=== PATIENT | female | born 1995 | race Caucasian/White ===

== ENCOUNTER 2018-07-22 21:17 | Emergency (ER) | payer BC, OTHER ==
[2018-07-22 21:40] VITALS: TEMP 98.1
--- NOTE | 2018-07-22 22:58 | ED ---
General Adult HPI - General Chief complaint: Abdominal Pain Stated complaint: Abd and back pain. Time Seen by Provider: 07/22/18 22:00 Source: patient, RN notes reviewed Mode of arrival: ambulatory Limitations: no limitations - History of Present Illness Initial comments: 23-year-old female without any past medical history presents to the emergency department for a chief complaint of epigastric pain. Patient states this has been ongoing for the past day. Patient states it is a burning pain in her upper abdomen that radiates around her bilateral ribs. She denies any back pain. Patient denies this pain worsening with eating. She states it is better at night and worse during the day. She denies any lower abdominal pain. Patient denies nausea or vomiting. She states she is eating and drinking normally.Patient has no other complaints at this time including shortness of breath, chest pain, nausea or vomiting, headache, or visual changes. - Related Data Home Medications Medication Instructions Recorded Confirmed Ibuprofen [Motrin] 800 mg PO TID PRN 07/22/18 07/22/18 Previous Rx's Medication Instructions Recorded Famotidine [Pepcid] 20 mg PO BID #20 tablet 07/23/18 Allergies Allergy/AdvReac Type Severity Reaction Status Date / Time No Known Allergies Allergy Verified 07/22/18 21:49 Review of Systems ROS Statement: Those systems with pertinent positive or pertinent negative responses have been documented in the HPI. ROS Other: All systems not noted in ROS Statement are negative. Past Medical History Past Medical History: No Reported History History of Any Multi-Drug Resistant Organisms: None Reported Past Surgical History: No Surgical Hx Reported Past Anesthesia/Blood Transfusion Reactions: No Reported Reaction Past Psychological History: No Psychological Hx Reported Smoking Status: Current every day smoker Past Alcohol Use History: None Reported Past Drug Use History: None Reported General Exam Limitations: no limitations General appearance: alert, in no apparent distress Head exam: Present: atraumatic, normocephalic, normal inspection Eye exam: Present: normal appearance, PERRL, EOMI. Absent: scleral icterus, conjunctival injection, periorbital swelling ENT exam: Present: normal exam, normal oropharynx, mucous membranes moist, TM's normal bilaterally, normal external ear exam Neck exam: Present: normal inspection, full ROM. Absent: tenderness, meningismus, lymphadenopathy Respiratory exam: Present: normal lung sounds bilaterally. Absent: respiratory distress, wheezes, rales, rhonchi, stridor Cardiovascular Exam: Present: regular rate, normal rhythm, normal heart sounds. Absent: systolic murmur, diastolic murmur, rubs, gallop, clicks GI/Abdominal exam: Present: soft, tenderness (Tenderness noted to the epigastric area as well as right and left upper quadrants. Positive Sinclair sign. No tenderness noted to the right and left lower quadrants.), normal bowel sounds. Absent: distended, guarding, rebound, rigid Back exam: Absent: CVA tenderness (R), CVA tenderness (L) Neurological exam: Present: alert, oriented X3, CN II-XII intact Psychiatric exam: Present: normal affect, normal mood Course Vital Signs 07/22/18 07/23/18 21:37 01:10 Temperature 98.1 F Pulse Rate 85 68 Respiratory 20 19 Rate Blood Pressure 137/71 117/82 O2 Sat by Pulse 100 98 Oximetry Medical Decision Making - Medical Decision Making Vitals within normal limits. Exam shows mild epigastric tenderness without guarding. There is also right and left upper quadrant tenderness. No lower abdominal tenderness. CBC and CMP are unremarkable. Urine was cultured as this does show some white blood cells however there are epithelial cells as well. Amylase and lipase are within normal limits. No gallstones or dilated ducts on ultrasound of the right upper quadrant. X-ray of the abdomen shows a nonacute abdomen. Patient was given Toradol and Pepcid. She is having somewhat better at this time. Discussed following up with primary care and GI. Discussed returning if patient has any worsening symptoms. - Lab Data Result diagrams: 07/22/18 21:51 07/22/18 21:51 Lab Results 07/22/18 07/22/18 07/22/18 Range/Units 21:51 21:51 21:51 WBC 9.1 (3.8-10.6) k/uL RBC 4.81 (3.80-5.40) m/uL Hgb 13.4 (11.4-16.0) gm/dL Hct 42.4 (34.0-46.0) % MCV 88.1 (80.0-100.0) fL MCH 27.8 (25.0-35.0) pg MCHC 31.6 (31.0-37.0) g/dL RDW 14.1 (11.5-15.5) % Plt Count 150 (150-450) k/uL Neutrophils % 62 % Lymphocytes % 28 % Monocytes % 5 % Eosinophils % 3 % Basophils % 1 % Neutrophils # 5.6 (1.3-7.7) k/uL Lymphocytes # 2.5 (1.0-4.8) k/uL Monocytes # 0.5 (0-1.0) k/uL Eosinophils # 0.3 (0-0.7) k/uL Basophils # 0.0 (0-0.2) k/uL Sodium 140 (137-145) mmol/L Potassium 3.9 (3.5-5.1) mmol/L Chloride 108 H (98-107) mmol/L Carbon Dioxide 24 (22-30) mmol/L Anion Gap 8 mmol/L BUN 12 (7-17) mg/dL Creatinine 0.86 (0.52-1.04) mg/dL Est GFR (CKD-EPI)AfAm >90 (>60 ml/min/1.73 sqM) Est GFR (CKD-EPI)NonAf >90 (>60 ml/min/1.73 sqM) Glucose 86 (74-99) mg/dL Calcium 9.2 (8.4-10.2) mg/dL Total Bilirubin 0.4 (0.2-1.3) mg/dL AST 24 (14-36) U/L ALT 27 (9-52) U/L Alkaline Phosphatase 88 (38-126) U/L Total Protein 6.7 (6.3-8.2) g/dL Albumin 4.1 (3.5-5.0) g/dL Amylase 48 (30-110) U/L Lipase 74 (23-300) U/L Urine Color Yellow Urine Appearance Cloudy H (Clear) Urine pH 5.5 (5.0-8.0) Ur Specific [place] 1.027 (1.001-1.035) Urine Protein Trace H (Negative) Urine Glucose (UA) Negative (Negative) Urine Ketones 1+ H (Negative) Urine Blood Negative (Negative) Urine Nitrite Negative (Negative) Urine Bilirubin Negative (Negative) Urine Urobilinogen <2.0 (<2.0) mg/dL Ur Leukocyte Esterase Negative (Negative) Urine RBC 4 (0-5) /hpf Urine WBC 7 H (0-5) /hpf Ur Squamous Epith Cells 6 H (0-4) /hpf Urine Bacteria Rare H (None) /hpf Urine Mucus Moderate H (None) /hpf Urine HCG, Qual (Not Detectd) 07/22/18 Range/Units 21:51 WBC (3.8-10.6) k/uL RBC (3.80-5.40) m/uL Hgb (11.4-16.0) gm/dL Hct (34.0-46.0) % MCV (80.0-100.0) fL MCH (25.0-35.0) pg MCHC (31.0-37.0) g/dL RDW (11.5-15.5) % Plt Count (150-450) k/uL Neutrophils % % Lymphocytes % % Monocytes % % Eosinophils % % Basophils % % Neutrophils # (1.3-7.7) k/uL Lymphocytes # (1.0-4.8) k/uL Monocytes # (0-1.0) k/uL Eosinophils # (0-0.7) k/uL Basophils # (0-0.2) k/uL Sodium (137-145) mmol/L Potassium (3.5-5.1) mmol/L Chloride (98-107) mmol/L Carbon Dioxide (22-30) mmol/L Anion Gap mmol/L BUN (7-17) mg/dL Creatinine (0.52-1.04) mg/dL Est GFR (CKD-EPI)AfAm (>60 ml/min/1.73 sqM) Est GFR (CKD-EPI)NonAf (>60 ml/min/1.73 sqM) Glucose (74-99) mg/dL Calcium (8.4-10.2) mg/dL Total Bilirubin (0.2-1.3) mg/dL AST (14-36) U/L ALT (9-52) U/L Alkaline Phosphatase (38-126) U/L Total Protein (6.3-8.2) g/dL Albumin (3.5-5.0) g/dL Amylase (30-110) U/L Lipase (23-300) U/L Urine Color Urine Appearance (Clear) Urine pH (5.0-8.0) Ur Specific [place] (1.001-1.035) Urine Protein (Negative) Urine Glucose (UA) (Negative) Urine Ketones (Negative) Urine Blood (Negative) Urine Nitrite (Negative) Urine Bilirubin (Negative) Urine Urobilinogen (<2.0) mg/dL Ur Leukocyte Esterase (Negative) Urine RBC (0-5) /hpf Urine WBC (0-5) /hpf Ur Squamous Epith Cells (0-4) /hpf Urine Bacteria (None) /hpf Urine Mucus (None) /hpf Urine HCG, Qual Not Detected (Not Detectd) Disposition Clinical Impression: Abdominal pain Disposition: HOME SELF-CARE Condition: Good Instructions: Abdominal Pain (ED) Additional Instructions: Please take Pepcid as directed. Please follow-up with GI in 1-2 days. Return to the emergency department if you have any worsening symptoms. Prescriptions: Famotidine [Pepcid] 20 mg PO BID #20 tablet Is patient prescribed a controlled substance at d/c from ED?: No Referrals: Evelin Roberts MD [STAFF PHYSICIAN] - 1-2 days Time of Disposition: 00:40
[2018-07-22 23:17] LABS: Basophils % (A) 1 %; Eosinophils # (A) 0.3 k/uL (0-0.7); Eosinophils % (A) 3 %; HCT 42.4 % (34.0-46.0); HGB 13.4 gm/dL (11.4-16.0); Lymphocytes # (A) 2.5 k/uL (1.0-4.8); Lymphocytes % (A) 28 %; MCH 27.8 pg (25.0-35.0); MCHC 31.6 g/dL (31.0-37.0); MCV 88.1 fL (80.0-100.0); Mean Platelet Volume 7.5; Monocytes # (A) 0.5 k/uL (0-1.0); Monocytes % (A) 5 %; Neutrophils # (A) 5.6 k/uL (1.3-7.7); Neutrophils % (A) 62 %; Platelet Count 150 k/uL (150-450); RBC 4.81 m/uL (3.80-5.40); RDW 14.1 % (11.5-15.5); WBC 9.1 k/uL (3.8-10.6)
[2018-07-22 23:26] LABS: Appearance,Urine Cloudy (Clear); Bacteria,Urine Rare /hpf; Bilirubin,Urine Negative (Negative); Blood,Urine Negative (Negative); Color,Urine Yellow; Glucose,Urine (UA) Negative (Negative); Ketones,Urine 1+ (Negative); Leukocyte Esterase,Urine Negative (Negative); Mucus,Urine Moderate /hpf; Nitrite,Urine Negative (Negative); PH, Urine 5.5 (5.0-8.0); Protein,Urine Trace (Negative); RBC,Urine 4 /hpf (0-5); Specific Gravity,Urine 1.027 (1.001-1.035); Squamous Epithelial Cell,Urine 6 /hpf (0-4); Urobilinogen,Urine <2.0 mg/dL (<2.0); WBC,Urine 7 /hpf (0-5)
[2018-07-22 23:28] LABS: ALT 27 U/L (9-52); AST 24 U/L (14-36); Albumin 4.1 g/dL (3.5-5.0); Alkaline Phosphatase 88 U/L (38-126); Amylase 48 U/L (30-110); Anion Gap 8 mmol/L; Blood Urea Nitrogen 12 mg/dL (7-17); Calcium 9.2 mg/dL (8.4-10.2); Carbon Dioxide 24 mmol/L (22-30); Chloride 108 mmol/L (98-107); Glucose 86 mg/dL (74-99); Lipase 74 U/L (23-300); Potassium 3.9 mmol/L (3.5-5.1); Sodium 140 mmol/L (137-145); Total Bilirubin 0.4 mg/dL (0.2-1.3); Total Protein 6.7 g/dL (6.3-8.2)
--- NOTE | 2018-07-22 23:46 | US ---
EXAMINATION TYPE: US abdomen limited DATE OF EXAM: 07/22/2018 COMPARISON: NONE CLINICAL HISTORY: Pain. RUQ pain x 3-4 days EXAM MEASUREMENTS: Liver Length: 15.8 cm Gallbladder Wall: 0.2 cm CBD: 0.2 cm Right Kidney: 9.5 x 3.4 x 5.1 cm Pancreas: wnl, body and tail obscured by overlying bowel gas Liver: wnl Gallbladder: wnl Evidence for sonographic Sinclair's sign: No CBD: wnl Right Kidney: wnl, lower pole gassed out IMPRESSION: No gallstones or dilated ducts. Negative exam.
[2018-07-22] MEDS ORDERED: KETOROLAC 30 MG/ML 1 ML VIAL IVP STA (23:55)
[2018-07-22] MEDS ORDERED: ONDANSETRON 4 MG/2 ML VIAL IVP STA (23:55)
--- NOTE | 2018-07-23 00:18 | XR ---
EXAMINATION TYPE: XR abdomen 2V DATE OF EXAM: 07/23/2018 COMPARISON: NONE HISTORY: Abdominal pain TECHNIQUE: 3 views FINDINGS: There is no sign of intestinal obstruction or pneumoperitoneum. Fecal pattern is normal. Th ere is no evidence of a mass. Lung bases are clear. There are no pathologic calcifications over the k idneys. IMPRESSION: Nonacute abdomen.
[2018-07-23] MEDS ORDERED: FAMOTIDINE 20 MG/2 ML VIAL IV STA (00:38)
[2018-07-23 01:12] VITALS: BP 117/82; PULSE 68; RESP 19
== END 2018-07-23 01:10 | disposition home or self-care (01) ==
LOC: EC 21:17
DX: R10.13 Epigastric pain (principal); R10.11 Right upper quadrant pain; R10.12 Left upper quadrant pain; F17.200 Nicotine dependence, unspecified, uncomplicated; Z32.02 Encounter for pregnancy test, result negative
CPT/HCPCS: 99284 ×2; 96374 ×2; 96375 ×3; 36415; 80053; 82150; 83690; 85025; 81001; 81025; 87086; 74019; 76705; J2405; J1885

== ENCOUNTER 2020-10-01 15:57 | Emergency (ER) | payer OTHER ==
[2020-10-01 16:05] VITALS: BP 107/70; PULSE 107; RESP 16; TEMP 97.7
[2020-10-01] MEDS ORDERED: cefTRIAXone 1,000 MG VIAL (IM USE) IM STA (16:15)
--- NOTE | 2020-10-01 16:18 | ED ---
ENT HPI - General Chief complaint: Dental/Oral Stated complaint: dental pain Time Seen by Provider: 10/01/20 16:10 Source: patient, RN notes reviewed Mode of arrival: ambulatory Limitations: no limitations - History of Present Illness Initial comments: 25-year-old female presented to [facility] from chief complaint of abdominal pain, dental swelling. Patient was started on antibiotics on Wednesday. Patient stated Pen-Vee K currently. Patient states started improving. Patient had no change in the swelling or pain. Patient denies any fevers or chills no difficult swallowing. Patient denies any head or neck pain. - Related Data Home Medications Medication Instructions Recorded Confirmed Ibuprofen [Motrin] 800 mg PO TID PRN 07/22/18 07/22/18 Previous Rx's Medication Instructions Recorded Famotidine [Pepcid] 20 mg PO BID #20 tablet 07/23/18 Amoxicillin/Potassium Clav 1 tab PO Q12HR #20 tab 10/01/20 [Augmentin 875-125 Tablet] Allergies Allergy/AdvReac Type Severity Reaction Status Date / Time No Known Allergies Allergy Verified 10/01/20 16:05 Review of Systems ROS Statement: Those systems with pertinent positive or pertinent negative responses have been documented in the HPI. ROS Other: All systems not noted in ROS Statement are negative. Past Medical History Past Medical History: No Reported History History of Any Multi-Drug Resistant Organisms: None Reported Past Surgical History: No Surgical Hx Reported Past Anesthesia/Blood Transfusion Reactions: No Reported Reaction Past Psychological History: No Psychological Hx Reported Smoking Status: Current every day smoker Past Alcohol Use History: None Reported Past Drug Use History: None Reported General Exam Limitations: no limitations General appearance: alert, in no apparent distress Head exam: Present: atraumatic, normocephalic, normal inspection Eye exam: Present: normal appearance, PERRL, EOMI. Absent: scleral icterus, conjunctival injection, periorbital swelling ENT exam: Present: mucous membranes moist, TM's normal bilaterally, normal e xternal ear exam. Absent: normal oropharynx (multiple dental fillings, dental caries noted no drainable abscess.) Neck exam: Present: normal inspection, full ROM. Absent: tenderness, meningismus, lymphadenopathy Respiratory exam: Present: normal lung sounds bilaterally. Absent: respiratory distress, wheezes, rales, rhonchi, stridor Cardiovascular Exam: Present: regular rate, normal rhythm, normal heart sounds. Absent: systolic murmur, diastolic murmur, rubs, gallop, clicks Course Vital Signs 10/01/20 16:01 Temperature 97.7 F Pulse Rate 107 H Respiratory 16 Rate Blood Pressure 107/70 O2 Sat by Pulse 98 Oximetry Medical Decision Making - Medical Decision Making patient we given a shot of Rocephin currently, patient was started on Augmentin. Patient continue Tylenol as she is 31 weeks . Patient follow-up with dentist and DIRECTOR OF GUIDANCE return parameters were discussed. Disposition Clinical Impression: Toothache, Dental infection Disposition: HOME SELF-CARE Condition: Stable Instructions (If sedation given, give patient instructions): Toothache (ED) Additional Instructions: Please return to the Emergency Department if symptoms worsen or any other concerns. Prescriptions: Amoxicillin/Potassium Clav [Augmentin 875-125 Tablet] 1 tab PO Q12HR #20 tab Is patient prescribed a controlled substance at d/c from ED?: No Referrals: Ana Devi DO [Primary Care Provider] - 1-2 days Time of Disposition: 16:17
== END 2020-10-01 16:51 | disposition home or self-care (01) ==
LOC: EC 15:57
DX: K04.7 Periapical abscess without sinus (principal); F17.200 Nicotine dependence, unspecified, uncomplicated
CPT/HCPCS: 99282; 96372; J0696

== ENCOUNTER 2020-11-26 06:00 | Inpatient (IN) | payer BC, OTHER ==
[2020-11-25 15:17] VITALS: BMI 34.3
--- NOTE | 2020-11-25 16:43 | P.HPOB ---
History of Present Illness H&P Date: 11/25/20 Chief Complaint: Breech, trial version/possible C/S This patient is a pleasant 25 yr female EDC 12/03/2020 estimated gestational age 39 0/7 weeks with known breech presentation who presents for trial of external cephalic version. If unsuccessful then C/S, otherwise induction. has been uncomplicated with the exception of COVID (November 01) and mild thrombocytopenia. Most recent platelets were 129 (11/14). Review of Systems Genitourinary: Reports Menstruation: Reports amenorrhea Past Medical History Past Medical History: GERD/Reflux Additional Past Medical History / Comment(s): 2 previous term vaginal deliveries. Mild gestational thrombocytopenia. History of Any Multi-Drug Resistant Organisms: None Reported Past Surgical History: No Surgical Hx Reported Past Anesthesia/Blood Transfusion Reactions: No Reported Reaction Additional Past Anesthesia/Blood Transfusion Reaction / Comment(s): NO ANESTHESIA HX. Past Psychological History: Anxiety, Depression Smoking Status: Current every day smoker Past Alcohol Use History: None Reported Additional Past Alcohol Use History / Comment(s): SMOKES 4 CIGARETTES/DAY., STARTED SMOKING AGE 17 Past Drug Use History: None Reported - Past Family History Mother Family Medical History: No Reported History Medications and Allergies Home Medications Medication Instructions Recorded Confirmed Type Calcium Carbonate [Tums] 500 mg PO DIRECTED PRN 11/25/20 11/25/20 History Ferrous Sulfate [Feosol] 325 mg PO DAILY 11/25/20 11/25/20 History Pnv No.95/Ferrous Fum/Folic AC 1 each PO DAILY 11/25/20 11/25/20 History [ Multivitamin Tablet] Allergies Allergy/AdvReac Type Severity Reaction Status Date / Time No Known Allergies Allergy Verified 11/25/20 14:57 Exam Intake and Output 11/25/20 11/25/20 11/25/20 06:59 14:59 22:59 Other: Weight 96.615 kg 96.615 kg - OBG Physical Exam Abdomen: bowel sounds normal, no diffuse tenderness, no bruit present, no guarding noted, no hepatomegaly, no splenomegaly, no mass Vulva: both: normal Vagina: normal moisture, no discharge Cervix: no lesion (Closed in the office), no discharge Uterus: enlarged (Fundal height 37 cm) Results labs: O positive, Rubella Immune, RPR-HepB neg, QUAD screen normal, Glucola 111 GBS negative, Most recent ultrasound Breech 5#8oz Assessment and Plan Assessment: This is a pleasant 25 yr female 39 0/7 weeks with known breech presentation who presents for trial of external cephalic version, C/s if unsuccessful. I had a long discussion with Shahrzad about the version process, risks/benefits. We also discussed the C/S process. If version is successful, would proceed with induction of labor. (1) 39 weeks gestation of Status: Acute Code(s): Z3A.39 - 39 WEEKS GESTATION OF SNOMED Code(s): 92923512 (2) Breech presentation Status: Acute Code(s): O32.1XX0 - MATERNAL CARE FOR BREECH PRESENTATION, UNSP SNOMED Code(s): 2581753 (3) Gestational thrombocytopenia Status: Acute Code(s): O99.119 - OTH DIS OF BLD/BLD-FORM ORG/IMMUN MECHNSM COMP PREG,UNSP TRI; D69.6 - THROMBOCYTOPENIA, UNSPECIFIED SNOMED Code(s): 953455171
[2020-11-26] MEDS ORDERED: LACTATED RINGERS 1,000 ML IV SCH (06:12)
[2020-11-26] MEDS ORDERED: METHYLERGONOVINE 0.2 MG/ML 1 ML AMP IM PRN (06:12)
[2020-11-26] MEDS ORDERED: OXYTOCIN 10 UNIT/ML 1 ML VIAL IM PRN (06:12)
[2020-11-26] MEDS ORDERED: LIDOCAINE 0.5% (PF) 5 MG/ML (50 ML SDV) SQ PRN (06:12)
[2020-11-26] MEDS ORDERED: CARBOPROST TROMETHAMINE 250 MCG/ML 1 ML AMP IM PRN (06:12)
[2020-11-26] MEDS ORDERED: TERBUTALINE 1 MG/ML VIAL SQ PRN (06:12)
[2020-11-26 06:31] LABS: Basophils % (A) 1 %; Eosinophils # (A) 0.2 k/uL (0-0.7); Eosinophils % (A) 2 %; HCT 33.4 % (34.0-46.0); HGB 11.2 gm/dL (11.4-16.0); Hypochromasia Slight; Lymphocytes # (A) 1.7 k/uL (1.0-4.8); Lymphocytes % (A) 18 %; MCH 30.1 pg (25.0-35.0); MCHC 33.5 g/dL (31.0-37.0); Mean Platelet Volume 9.6; Monocytes # (A) 0.5 k/uL (0-1.0); Monocytes % (A) 5 %; Neutrophils # (A) 7.1 k/uL (1.3-7.7); Neutrophils % (A) 74 %; Platelet Count 105 k/uL (150-450); Poikilocytosis Slight; RBC 3.71 m/uL (3.80-5.40); RDW 15.3 % (11.5-15.5); WBC 9.6 k/uL (3.8-10.6)
[2020-11-26] MEDS ORDERED: LACTATED RINGERS 1,000 ML IV ONE (06:31)
[2020-11-26] MEDS ORDERED: CITRIC ACID-SODIUM CITRATE 15 ML CUP PO ONE (06:31)
--- NOTE | 2020-11-26 06:31 | P.PN ---
Progress Note - Text Progress Note Date: 11/26/20 Patient presented for trial of external cephalic version. heart tones are category 1. Bedside ultrasound initially showed oblique lie with a hand presentation. Patient was monitored for approximately 10 or 15 minutes and repeat ultrasound now shows the baby to be breech presentation with the head in the patient's left upper quadrant. Discussion with the patient and her and due to the unstable lie we are going to proceed with section at this time.
[2020-11-26] MEDS ORDERED: OXYTOCIN 10 UNIT/ML 1 ML VIAL ONE (07:55)
[2020-11-26] MEDS ORDERED: MORPHINE SULFATE (PF) 0.3 MG/0.3 ML SYR ONE (07:55)
[2020-11-26] MEDS ORDERED: ONDANSETRON 4 MG/2 ML VIAL ONE (07:55)
--- NOTE | 2020-11-26 08:46 | P.OP ---
Date of Procedure: 11/26/20 Preoperative Diagnosis: #1: 39 weeks intrauterine . #2: Unstable lie. Postoperative Diagnosis: Same Procedure(s) Performed: Primary low transverse section Anesthesia: spinal Surgeon: Abdi Drake Warp Dyeing Tender #1: Kerry Rosales Estimated Blood Loss (ml): 800 Pathology: none sent Condition: stable Disposition: floor Indications for Procedure: Please see dictated H&P for intimate details of this patient's admission. Brief summary this is a pleasant 25-year-old 3 para 2 female 39 weeks gestation initially admitted for expected cephalic version. Patient initially found to be in the oblique presentation approximate 15 minutes later is breech presentation. Is very consistent with unstable lie. Patient is not dilated. I discussed management with her at this time we elected to proceed with section for delivery. She does understand the surgery and risks and risks of infection, bleeding, possible injury bowel, bladder, vessels, and/or other organs. All the patient's questions were answered written consent is obtained. Operative Findings: This is a vigorous viable female infant Apgars 9 and 10 delivery time was 0814 hours. Infant was in the transverse presentation converted to vertex/compound upon delivery. Description of Procedure: This patient has a Metcalf catheter placed to straight drain. She subsequently taken to the operating room where she sat up and spinal anesthetic is administered without incident. With adequate level of anesthesia she has abdominal prep and drape. Scalpels and taken Pfannenstiel skin incision is made. A second scalpel is taken of the fascia and the fascia scored with scalpel. Fascial incision extended bilaterally using the Ferreira scissors. Fascia is then dissected off the rectus muscles sharply. Rectus muscles are and the peritoneum identified and entered sharply. Peritoneal incision extended superior and inferior without difficulty. Bladder blade is then placed. Bladder peritoneum was then taken off lower uterine segment. Scalpels taken low transverse uterine incision is then made. Using a hemostat I into the uterine cavity bluntly. There is loss of a copious amount of clear fluid. At this time the is found to be in the transverse presentation. Initial efforts there is a foot presenting but is then converted to a vertex with a hand and foot/compound presentation. This is easily delivered through the incision. This is a vigorous viable female infant Apgars 9 and 10 delivery time was 0814 hours. After delivery of the the umbilical cords doubly clamped and cut. The placenta is then manually extracted intact. The uterus is then externalized uterine incision demarcated with Lawson clamps. Uterine incision then closed using 0 Vicryl running locked fashion 2 layers. Excellent hemostasis is noted. The bladder peritoneum was then reapproximated using a 3-0 Vicryl. Excess fluid is removed from the abdomen and pelvis. Uterus placed back into the pelvis. Final inspection shows excellent hemostasis. The parietal peritoneum was then identified and closed using 0 Vicryl running fashion. Rectus muscles reapproximated in 0 Vicryl interrupted fashion. Fascial incision is then closed using 0 PDS. Fascial incision is intact and hemostatic. Subcutaneous tissues and closed using a 3-0 Vicryl. Skin is and closed using louise. All counts are correct 3. There are no complications. and mother are stable delivery room.
[2020-11-26] MEDS ORDERED: ZOLPIDEM 5 MG TAB PO PRN (08:51)
[2020-11-26] MEDS ORDERED: METOCLOPRAMIDE 5 MG/ML 2 ML VIAL IVP PRN (08:51)
[2020-11-26] MEDS ORDERED: NALOXONE 0.4 MG/ML 1 ML VIAL IV PRN (08:51)
[2020-11-26] MEDS ORDERED: ONDANSETRON 4 MG/2 ML VIAL IVP PRN (08:51)
[2020-11-26] MEDS ORDERED: diphenhydrAMINE 25 MG CAP PO PRN (08:51)
[2020-11-26] MEDS ORDERED: LANOLIN CREAM 5 GM TUBE TOPICAL PRN (08:51)
[2020-11-26] MEDS ORDERED: OXYTOCIN 30 UNITS/500 ML NS 30 UNIT in SALINE 1 500ML.BAG IV SCH (08:51)
[2020-11-26] MEDS ORDERED: diphenhydrAMINE 50 MG/ML 1 ML VIAL IVP PRN (08:51)
[2020-11-26] MEDS: SENNOSIDES-DOCUSATE SODIUM 1 EACH TAB PO SCH ×2 (09:11→20:40)
[2020-11-26] MEDS: KETOROLAC 15 MG/ML 1 ML VIAL IVP PRN ×2 (17:43→23:52)
[2020-11-26] MEDS: LACTATED RINGERS 1,000 ML IV SCH (20:40)
[2020-11-26] MEDS: ACETAMINOPHEN TAB 500 MG TAB PO PRN (21:59)
[2020-11-27] MEDS: LACTATED RINGERS 1,000 ML IV SCH ×2 (02:02→20:51)
[2020-11-27] MEDS: ACETAMINOPHEN TAB 500 MG TAB PO PRN ×3 (05:31→18:41)
--- NOTE | 2020-11-27 05:59 | P.PN ---
Progress Note - Text Progress Note Date: 11/27/20 Shahrzad is postop day 1 from a with spinal Duramorph. She has been doing pretty well. Her pain is been controlled well overnight. She is using minimal amounts of [id number] medications. She has been able to ambulate, she's been able to urinate. She is passing flatus. She is mild pruritus. There is no lower extremity weakness numbness or tingling. Please contact anesthesia if there is any issues.
--- NOTE | 2020-11-27 06:31 | P.PNOBGPC ---
Subjective - Subjective Patient reports: Reports appetite normal, Reports voiding normally, Reports pain well controlled, Reports ambulating normally : doing well Objective - Vital Signs Latest vital signs: Vital Signs Temp Pulse Resp BP Pulse Ox 11/27/20 03:43 97.7 F 62 16 111/64 99 11/27/20 00:00 97.9 F 72 16 109/60 100 11/26/20 20:00 97.9 F 73 16 116/64 98 11/26/20 16:00 98.4 F 68 16 129/66 97 11/26/20 12:00 97.4 F L 59 L 16 115/71 11/26/20 10:52 97.8 F 57 L 16 111/75 11/26/20 10:22 56 L 16 118/54 11/26/20 09:51 68 16 104/56 98 11/26/20 09:37 59 L 16 95/52 97 11/26/20 09:17 64 16 102/56 97 11/26/20 09:07 68 16 107/61 98 11/26/20 08:52 97.6 F 76 16 93/43 98 Intake and Output 11/26/20 11/26/20 11/27/20 14:59 22:59 06:59 Output Total 1150 2200 1750 Balance -1150 -2200 -1750 Output: Urine 350 2200 1750 Uretheral (Metcalf) 1100 Estimated Blood Loss 800 Other: # Voids 1 - Exam Lungs: bilateral: normal Chest: Normal S1, Normal S2 Extremities: Present: normal Abdomen: Present: normal appearance, soft. Absent: distention, tenderness Incision: Present: normal, dry, intact Uterus: Present: normal, firm - Labs Labs: Abnormal Lab Results - Last 24 Hours (Table) 11/26/20 Range/Units 06:15 RBC 3.71 L (3.80-5.40) m/uL Hgb 11.2 L (11.4-16.0) gm/dL Hct 33.4 L (34.0-46.0) % Plt Count 105 L (150-450) k/uL Assessment and Plan Assessment: Postoperative day #1. Patient had 1 episode of urinary retention but otherwise is urinating without difficulty. Vital signs are stable she's afebrile. Uterus is firm, nontender. Her incision is intact and dry. CBC is pending at time of this dictation. My impression, this is a normal postoperative course. Plan today is to encourage ambulation, allow the patient shower, check a CBC. (1) 39 weeks gestation of Current Visit: No Status: Acute Code(s): Z3A.39 - 39 WEEKS GESTATION OF SNOMED Code(s): 81193229 (2) Breech presentation Current Visit: No Status: Acute Code(s): O32.1XX0 - MATERNAL CARE FOR BREECH PRESENTATION, UNSP SNOMED Code(s): 2319497 (3) Gestational thrombocytopenia Current Visit: No Status: Acute Code(s): O99.119 - OTH DIS OF BLD/BLD-FORM ORG/IMMUN MECHNSM COMP PREG,UNSP TRI; D69.6 - THROMBOCYTOPENIA, UNSPECIFIED SNOMED Code(s): 531962099
[2020-11-27 07:47] LABS: Basophils % (A) 0 %; Eosinophils # (A) 0.1 k/uL (0-0.7); Eosinophils % (A) 1 %; Hypochromasia Moderate; Lymphocytes # (A) 1.3 k/uL (1.0-4.8); Lymphocytes % (A) 16 %; MCH 29.4 pg (25.0-35.0); MCV 91.9 fL (80.0-100.0); Mean Platelet Volume 9.5; Monocytes # (A) 0.4 k/uL (0-1.0); Monocytes % (A) 5 %; Neutrophils # (A) 6.4 k/uL (1.3-7.7); Neutrophils % (A) 77 %; Poikilocytosis Slight; RBC 2.83 m/uL (3.80-5.40); RDW 15.8 % (11.5-15.5); WBC 8.3 k/uL (3.8-10.6)
[2020-11-27 07:52] LABS: HGB 8.3 gm/dL (11.4-16.0)
[2020-11-27] MEDS: IBUPROFEN 600 MG TAB PO PRN ×3 (08:46→22:21)
[2020-11-27] MEDS: SENNOSIDES-DOCUSATE SODIUM 1 EACH TAB PO SCH ×2 (08:57→23:01)
[2020-11-27 10:52] LABS: Platelet Count 96 k/uL (150-450)
[2020-11-27] MEDS: FERROUS SULFATE 325 MG TAB PO SCH ×2 (12:15→18:41)
[2020-11-28] MEDS: ACETAMINOPHEN TAB 500 MG TAB PO PRN ×2 (00:55→08:16)
[2020-11-28] MEDS: IBUPROFEN 600 MG TAB PO PRN ×2 (04:02→10:09)
[2020-11-28 05:57] VITALS: RESP 17
--- NOTE | 2020-11-28 06:04 | P.PNOBGPC ---
Subjective - Subjective Patient reports: Reports appetite normal, Reports voiding normally, Reports pain well controlled, Reports ambulating normally : doing well Objective - Vital Signs Latest vital signs: Vital Signs Temp Pulse Resp BP Pulse Ox 11/27/20 23:01 97.7 F 87 17 111/71 98 11/27/20 15:49 98.2 F 82 16 102/69 11/27/20 12:00 97.6 F 75 16 100/66 11/27/20 08:00 98.4 F 68 18 116/61 98 Intake and Output 11/27/20 11/27/20 11/28/20 14:59 22:59 06:59 Other: # Voids 1 - Exam Lungs: bilateral: normal Chest: Normal S1, Normal S2 Extremities: Present: normal Abdomen: Present: normal appearance, soft. Absent: distention, tenderness Incision: Present: normal, dry, intact Uterus: Present: normal, firm - Labs Labs: Abnormal Lab Results - Last 24 Hours (Table) 11/27/20 Range/Units 06:39 RBC 2.83 L (3.80-5.40) m/uL Hgb 8.3 L D (11.4-16.0) gm/dL Hct 26.0 L (34.0-46.0) % RDW 15.8 H (11.5-15.5) % Plt Count 96 L (150-450) k/uL Assessment and Plan Assessment: Postoperative day #2. Patient is resting without new complaints and she is considering going home today. Vital signs are stable and she is afebrile. Uterus is firm nontender and she is having normal lochia. CBC shows a hemoglobin yesterday of 8.3 and platelets were 96. Patient is having no bleeding issues. Plan today is to continue routine postoperative care. I have started her on some iron. I will come back at lunch time and she is considering going home after that if she continues to feel well otherwise discharge home tomorrow. (1) 39 weeks gestation of Current Visit: No Status: Acute Code(s): Z3A.39 - 39 WEEKS GESTATION OF SNOMED Code(s): 39204071 (2) Breech presentation Current Visit: No Status: Acute Code(s): O32.1XX0 - MATERNAL CARE FOR BREECH PRESENTATION, UNSP SNOMED Code(s): 6024496 (3) Gestational thrombocytopenia Current Visit: No Status: Acute Code(s): O99.119 - OTH DIS OF BLD/BLD-FORM ORG/IMMUN MECHNSM COMP PREG,UNSP TRI; D69.6 - THROMBOCYTOPENIA, UNSPECIFIED SNOMED Code(s): 933706986
[2020-11-28] MEDS: FERROUS SULFATE 325 MG TAB PO SCH (08:16)
[2020-11-28] MEDS: SENNOSIDES-DOCUSATE SODIUM 1 EACH TAB PO SCH (08:18)
[2020-11-28 08:50] VITALS: BP 111/72; PULSE 90; TEMP 97.9
== END 2020-11-28 13:00 | disposition home or self-care (01) | DRG 787 ==
LOC: 4FBP 06:00
PROVIDERS: ADMIT Obstetrics & Gynecology; ATTEND Obstetrics & Gynecology
PROC: 10D00Z1 Extraction of Products of Conception, Low, Open Approach (ICD-10-PCS; principal; 2020-11-26 07:55)
DX: O32.1XX0 Maternal care for breech presentation, not applicable or unspecified (principal); O99.12 Other diseases of the blood and blood-forming organs and certain disorders involving the immune mechanism complicating childbirth; Z37.0 Single live birth; O99.334 Smoking (tobacco) complicating childbirth; F17.200 Nicotine dependence, unspecified, uncomplicated; O32.2XX0 Maternal care for transverse and oblique lie, not applicable or unspecified; Z3A.39 39 weeks gestation of pregnancy; D69.59 Other secondary thrombocytopenia; L29.9 Pruritus, unspecified; O32.0XX0 Maternal care for unstable lie, not applicable or unspecified; O75.89 Other specified complications of labor and delivery
CPT/HCPCS: 85025; 86850; 86900; 86901

== ENCOUNTER 2020-12-03 15:58 | Emergency (ER) | payer OTHER ==
[2020-12-03] MEDS ORDERED: ONDANSETRON 4 MG/2 ML VIAL IVP STA (16:54)
[2020-12-03] MEDS ORDERED: SODIUM CHLORIDE 0.9% 1,000 ML IV STA (16:54)
[2020-12-03] MEDS ORDERED: PANTOPRAZOLE 40 MG/10 ML VIAL IVP STA (16:55)
[2020-12-03] MEDS ORDERED: MAG HYDROX/AL HYDROX/SIMETH 30 ML, HYOSCYAMINE ELIXIR 10 ML PO STA ×2 (16:55)
--- NOTE | 2020-12-03 17:25 | ED ---
Abdominal Pain HPI - General Chief Complaint: Abdominal Pain Stated Complaint: post 1 wk /abd pain Time Seen by Provider: 12/03/20 16:10 Source: patient Mode of arrival: ambulatory Limitations: no limitations - History of Present Illness Initial Comments: Patient is a 25-year-old female with past history of GERD who presents to the emergency department with epigastric abdominal pain. Reports that the pain started approximately 4 days ago. She has associated nausea with one episode of vomiting. Denies any provocative factors. States that the pain is intermittent. Patient is status post on the . This was due to a breech presentation. She denies history of eclampsia or gestational diabetes. Denies any lower abdominal pain. Has had some light vaginal bleeding. No abnormal vaginal discharge. No fevers. Denies issues with her urination or defecation. No other alleviating, Perceptin or modifying factors - Related Data Home Medications Medication Instructions Recorded Confirmed Ferrous Sulfate [Iron (65 MG 325 mg PO DAILY 12/03/20 12/03/20 Elemental)] Ibuprofen [Motrin Ib] 800 mg PO Q8H PRN 12/03/20 12/03/20 Previous Rx's Medication Instructions Recorded Cephalexin [Keflex] 500 mg PO Q12HR 1 Days #14 cap 12/03/20 Famotidine [Pepcid] 20 mg PO BID #56 tablet 12/03/20 Omeprazole [PriLOSEC] 20 mg PO AC-BRKFST #30 cap 12/03/20 Allergies Allergy/AdvReac Type Severity Reaction Status Date / Time No Known Allergies Allergy Verified 12/03/20 16:57 Review of Systems ROS Statement: Those systems with pertinent positive or pertinent negative responses have been documented in the HPI. ROS Other: All systems not noted in ROS Statement are negative. Past Medical History Past Medical History: GERD/Reflux Additional Past Medical History / Comment(s): 2 previous term vaginal deliveries. Mild gestational thrombocytopenia. History of Any Multi-Drug Resistant Organisms: None Reported Past Surgical History: Section Past Anesthesia/Blood Transfusion Reactions: No Reported Reaction Additional Past Anesthesia/Blood Transfusion Reaction / Comment(s): NO ANESTHESIA HX. Past Psychological History: Anxiety, Depression Smoking Status: Current every day smoker Past Alcohol Use History: None Reported Past Drug Use History: None Reported - Past Family History Mother Family Medical History: No Reported History General Exam Limitations: no limitations General appearance: alert, in no apparent distress Head exam: Present: atraumatic, normocephalic, normal inspection Eye exam: Present: normal appearance, PERRL, EOMI. Absent: scleral icterus, conjunctival injection, periorbital swelling ENT exam: Present: normal exam, mucous membranes moist Neck exam: Present: normal inspection. Absent: tenderness, meningismus, lymphadenopathy Respiratory exam: Present: normal lung sounds bilaterally. Absent: respiratory distress, wheezes, rales, rhonchi, stridor Cardiovascular Exam: Present: regular rate, normal rhythm, normal heart sounds. Absent: systolic murmur, diastolic murmur, rubs, gallop, clicks GI/Abdominal exam: Present: soft, tenderness (epigastric), normal bowel sounds, other ( over lower abd is clean, dry and intact. No drainage, no signs of cellulits). Absent: distended, guarding, rebound, rigid Extremities exam: Present: normal inspection, full ROM, normal capillary refill. Absent: tenderness, pedal edema, joint swelling, calf tenderness Back exam: Present: normal inspection Neurological exam: Present: alert, oriented X3, CN II-XII intact Psychiatric exam: Present: normal affect, normal mood Skin exam: Present: warm, dry, intact, normal color. Absent: rash Course Vital Signs 12/03/20 12/03/20 16:07 20:08 Temperature 97.9 F 98.0 F Pulse Rate 97 88 Respiratory 20 18 Rate Blood Pressure 129/85 125/79 O2 Sat by Pulse 99 98 Oximetry Medical Decision Making - Medical Decision Making Upon arrival patient is placed in room 31. There are history and physical exam is performed. IV is established. Patient was given 40 mg of Protonix, liter bolus of normal saline, 4 mg Zofran and a GI cocktail. Laboratory studies were conducted and an ultrasound was performed. Laboratory studies reviewed demonstrate a hemoglobin of 9.7. This is improved from the patient's previous value of 8.3 which was drawn on the . UA demonstrates large leukocyte esterase, 22 white blood cells and rare bacteria. I did discuss the results of the ultrasound with the patient which includes no sonographic evidence for acute abnormality or cholelithiasis. Patient does report to improvement in her symptoms with medication administration. I did discuss diagnosis, differential treatment options. At this time I did recommend that the patient have further testing if she continues to have symptoms which may include a HIDA scan or an EGD. Patient will be started back on her reflux medications. I did call in a prescription for famotidine and Prilosec. Patient was given a dose of Keflex in the emergency department and will be placed on Keflex due to her bacteria. Patient does report that when she provided a sample she did have some burning with urination. Patient is to follow-up with her primary care doctor within 2-4 days. Return to the emergency room for any new or worsening symptoms. Patient agreed to this and she was discharged home in stable condition - Lab Data Result diagrams: 12/03/20 16:54 12/03/20 16:54 Lab Results 12/03/20 12/03/20 12/03/20 Range/Units 16:54 16:54 16:54 WBC 10.2 (3.8-10.6) k/uL RBC 3.40 L (3.80-5.40) m/uL Hgb 9.7 L (11.4-16.0) gm/dL Hct 30.8 L (34.0-46.0) % MCV 90.8 (80.0-100.0) fL MCH 28.5 (25.0-35.0) pg MCHC 31.3 (31.0-37.0) g/dL RDW 15.9 H (11.5-15.5) % Plt Count 191 D (150-450) k/uL MPV 7.8 Neutrophils % 78 % Lymphocytes % 14 % Monocytes % 5 % Eosinophils % 2 % Basophils % 1 % Neutrophils # 8.0 H (1.3-7.7) k/uL Lymphocytes # 1.4 (1.0-4.8) k/uL Monocytes # 0.5 (0-1.0) k/uL Eosinophils # 0.2 (0-0.7) k/uL Basophils # 0.1 (0-0.2) k/uL Hypochromasia Moderate Poikilocytosis Slight Sodium 139 (137-145) mmol/L Potassium 4.2 (3.5-5.1) mmol/L Chloride 110 H (98-107) mmol/L Carbon Dioxide 21 L (22-30) mmol/L Anion Gap 8 mmol/L BUN 17 (7-17) mg/dL Creatinine 0.85 (0.52-1.04) mg/dL Est GFR (CKD-EPI)AfAm >90 (>60 ml/min/1.73 sqM) Est GFR (CKD-EPI)NonAf >90 (>60 ml/min/1.73 sqM) Glucose 84 (74-99) mg/dL Plasma Lactic Acid Kyrie 0.7 (0.7-2.0) mmol/L Calcium 8.9 (8.4-10.2) mg/dL Total Bilirubin 0.4 (0.2-1.3) mg/dL AST 25 (14-36) U/L ALT 24 (4-34) U/L Alkaline Phosphatase 151 H (38-126) U/L Total Protein 6.1 L (6.3-8.2) g/dL Albumin 3.5 (3.5-5.0) g/dL Lipase 53 (23-300) U/L Urine Color Urine Appearance (Clear) Urine pH (5.0-8.0) Ur Specific [place] (1.001-1.035) Urine Protein (Negative) Urine Glucose (UA) (Negative) Urine Ketones (Negative) Urine Blood (Negative) Urine Nitrite (Negative) Urine Bilirubin (Negative) Urine Urobilinogen (<2.0) mg/dL Ur Leukocyte Esterase (Negative) Urine RBC (0-5) /hpf Urine WBC (0-5) /hpf Ur Squamous Epith Cells (0-4) /hpf Urine Bacteria (None) /hpf Urine Mucus (None) /hpf 12/03/20 Range/Units 17:12 WBC (3.8-10.6) k/uL RBC (3.80-5.40) m/uL Hgb (11.4-16.0) gm/dL Hct (34.0-46.0) % MCV (80.0-100.0) fL MCH (25.0-35.0) pg MCHC (31.0-37.0) g/dL RDW (11.5-15.5) % Plt Count (150-450) k/uL MPV Neutrophils % % Lymphocytes % % Monocytes % % Eosinophils % % Basophils % % Neutrophils # (1.3-7.7) k/uL Lymphocytes # (1.0-4.8) k/uL Monocytes # (0-1.0) k/uL Eosinophils # (0-0.7) k/uL Basophils # (0-0.2) k/uL Hypochromasia Poikilocytosis Sodium (137-145) mmol/L Potassium (3.5-5.1) mmol/L Chloride (98-107) mmol/L Carbon Dioxide (22-30) mmol/L Anion Gap mmol/L BUN (7-17) mg/dL Creatinine (0.52-1.04) mg/dL Est GFR (CKD-EPI)AfAm (>60 ml/min/1.73 sqM) Est GFR (CKD-EPI)NonAf (>60 ml/min/1.73 sqM) Glucose (74-99) mg/dL Plasma Lactic Acid Kyrie (0.7-2.0) mmol/L Calcium (8.4-10.2) mg/dL Total Bilirubin (0.2-1.3) mg/dL AST (14-36) U/L ALT (4-34) U/L Alkaline Phosphatase (38-126) U/L Total Protein (6.3-8.2) g/dL Albumin (3.5-5.0) g/dL Lipase (23-300) U/L Urine Color Yellow Urine Appearance Clear (Clear) Urine pH 6.0 (5.0-8.0) Ur Specific [place] 1.016 (1.001-1.035) Urine Protein Negative (Negative) Urine Glucose (UA) Negative (Negative) Urine Ketones Negative (Negative) Urine Blood Small H (Negative) Urine Nitrite Negative (Negative) Urine Bilirubin Negative (Negative) Urine Urobilinogen <2.0 (<2.0) mg/dL Ur Leukocyte Esterase Large H (Negative) Urine RBC 3 (0-5) /hpf Urine WBC 22 H (0-5) /hpf Ur Squamous Epith Cells 3 (0-4) /hpf Urine Bacteria Rare H (None) /hpf Urine Mucus Occasional H (None) /hpf Disposition Clinical Impression: Epigastric abdominal pain Disposition: HOME SELF-CARE Condition: Stable Instructions (If sedation given, give patient instructions): Epigastric Pain (ED) Additional Instructions: Please follow up with your PCP in 2-4 days. You may benefit from a HIDA scan or an EGD. Return to the ED for any new or worsening symptoms. Prescriptions: Cephalexin [Keflex] 500 mg PO Q12HR 1 Days #14 cap Famotidine [Pepcid] 20 mg PO BID #56 tablet Omeprazole [PriLOSEC] 20 mg PO AC-BRKFST #30 cap Is patient prescribed a controlled substance at d/c from ED?: No Referrals: Nonstaff,Physician [Primary Care Provider] - 1-2 days Time of Disposition: 19:32
[2020-12-03 17:43] LABS: Basophils # (A) 0.1 k/uL (0-0.2); Basophils % (A) 1 %; Eosinophils # (A) 0.2 k/uL (0-0.7); Eosinophils % (A) 2 %; HCT 30.8 % (34.0-46.0); Hypochromasia Moderate; Lymphocytes # (A) 1.4 k/uL (1.0-4.8); Lymphocytes % (A) 14 %; MCH 28.5 pg (25.0-35.0); MCHC 31.3 g/dL (31.0-37.0); MCV 90.8 fL (80.0-100.0); Mean Platelet Volume 7.8; Monocytes # (A) 0.5 k/uL (0-1.0); Monocytes % (A) 5 %; Neutrophils % (A) 78 %; Poikilocytosis Slight; RDW 15.9 % (11.5-15.5); WBC 10.2 k/uL (3.8-10.6)
[2020-12-03 17:47] LABS: ALT 24 U/L (4-34); AST 25 U/L (14-36); African American GFR (CKD) >90 (>60 ml/min/1.73 sqM); Albumin 3.5 g/dL (3.5-5.0); Alkaline Phosphatase 151 U/L (38-126); Anion Gap 8 mmol/L; Blood Urea Nitrogen 17 mg/dL (7-17); Calcium 8.9 mg/dL (8.4-10.2); Carbon Dioxide 21 mmol/L (22-30); Chloride 110 mmol/L (98-107); Glucose 84 mg/dL (74-99); Lipase 53 U/L (23-300); Non-African American GFR(CKD) >90 (>60 ml/min/1.73 sqM); Potassium 4.2 mmol/L (3.5-5.1); Sodium 139 mmol/L (137-145); Total Bilirubin 0.4 mg/dL (0.2-1.3); Total Protein 6.1 g/dL (6.3-8.2)
[2020-12-03 17:50] LABS: HGB 9.7 gm/dL (11.4-16.0); Platelet Count 191 k/uL (150-450)
--- NOTE | 2020-12-03 18:14 | US ---
EXAMINATION TYPE: US abdomen limited DATE OF EXAM: 12/03/2020 COMPARISON: US CLINICAL HISTORY: ruq pain. RUQ pain. Patient had 1 week ago. EXAM MEASUREMENTS: Liver Length: 16.8 cm Gallbladder Wall: 0.16 cm CBD: 0.34 cm Right Kidney: 10.8 x 5.6 x 4.3 cm Limited due to gas. Pancreas: Appears to be wnl. Liver: Appears wnl. Gallbladder: No definite gallstones, pericholecystic fluid or gallbladder wall thickening. Evidence for sonographic Sinclair's sign: No CBD: Portions seen appear wnl. Right Kidney: No hydronephrosis or masses seen IMPRESSION: No sonographic evidence for acute abnormality or cholelithiasis.
[2020-12-03 19:03] LABS: Appearance,Urine Clear (Clear); Bacteria,Urine Rare /hpf; Bilirubin,Urine Negative (Negative); Blood,Urine Small (Negative); Color,Urine Yellow; Glucose,Urine (UA) Negative (Negative); Ketones,Urine Negative (Negative); Leukocyte Esterase,Urine Large (Negative); Mucus,Urine Occasional /hpf; Nitrite,Urine Negative (Negative); Protein,Urine Negative (Negative); RBC,Urine 3 /hpf (0-5); Specific Gravity,Urine 1.016 (1.001-1.035); Squamous Epithelial Cell,Urine 3 /hpf (0-4); Urobilinogen,Urine <2.0 mg/dL (<2.0); WBC,Urine 22 /hpf (0-5)
[2020-12-03] MEDS ORDERED: CEPHALEXIN 500 MG CAP PO STA (19:29)
[2020-12-03 20:09] VITALS: BP 125/79; PULSE 88; RESP 18; TEMP 98
== END 2020-12-03 20:09 | disposition home or self-care (01) ==
LOC: EC 15:58
DX: R10.13 Epigastric pain (principal); F17.200 Nicotine dependence, unspecified, uncomplicated; K21.9 Gastro-esophageal reflux disease without esophagitis
CPT/HCPCS: 36415; 80053; 83605; 83690; 85025; 81001; 87086; 76705; 99284; 96374; 96375; 96361 ×3; J2405; C9113

== ENCOUNTER 2021-10-30 05:58 | Inpatient (IN) | payer BC, OTHER ==
--- NOTE | 2021-10-29 06:46 | P.HPOB ---
History of Present Illness H&P Date: 10/29/21 Chief Complaint: Repeat section and drainage of left simple labial cyst. This patient is a pleasant 26-year-old 4 para 3 female estimated date of confinement 11/06/2021 estimated gestational age 39-0/7 weeks who presents to labor and delivery for elective repeat section and drainage of left labial cyst.. History is such the patient's had 2 vaginal deliveries followed by a section for breech. Patient I discussed route of delivery this she's elected to proceed with section. Patient's is complicated by thrombocytopenia induced from the . Patient had this with her last . Most recent platelets were 107. Patient also had an abnormal quad screen with an elevated risk of trisomy 18. Patient was referred to maternal- medicine ultrasounds were completely normal. She did decline genetic testing. Patient also was noted to have a simple left labial cyst about 1 cm at 35 weeks and will drain this at the time of her as well. Review of Systems Genitourinary: Reports Menstruation: Reports amenorrhea Past Medical History Past Medical History: GERD/Reflux Additional Past Medical History / Comment(s): 2 previous term vaginal deliveries. Mild gestational thrombocytopenia. History of Any Multi-Drug Resistant Organisms: None Reported Past Surgical History: Section Past Anesthesia/Blood Transfusion Reactions: No Reported Reaction Additional Past Anesthesia/Blood Transfusion Reaction / Comment(s): NO ANESTHESIA HX. Past Psychological History: Anxiety, Depression Smoking Status: Current every day smoker Past Alcohol Use History: None Reported Past Drug Use History: None Reported - Past Family History Mother Family Medical History: No Reported History Medications and Allergies Home Medications Medication Instructions Recorded Confirmed Type Cephalexin [Keflex] 500 mg PO Q12HR 1 Days #14 cap 12/03/20 Rx Famotidine [Pepcid] 20 mg PO BID #56 tablet 12/03/20 Rx Ferrous Sulfate [Iron (65 MG 325 mg PO DAILY 12/03/20 12/03/20 History Elemental)] Ibuprofen [Motrin Ib] 800 mg PO Q8H PRN 12/03/20 12/03/20 History Omeprazole [PriLOSEC] 20 mg PO AC-BRKFST #30 cap 12/03/20 Rx Allergies Allergy/AdvReac Type Severity Reaction Status Date / Time No Known Allergies Allergy Verified 12/03/20 16:57 Exam - OBG Physical Exam Abdomen: bowel sounds normal, no diffuse tenderness, no bruit present, no guarding noted, no hepatomegaly, no splenomegaly, no mass Vulva: both: normal Vagina: normal moisture, no discharge Cervix: no lesion, no discharge Uterus: enlarged (Fundal height 41 cm) Results blood work shows she is O positive, rubella immune, RPR nonreactive, hepatitis B negative, HIV is nonreactive, quad screen showed elevated risk of trisomy 18, level III ultrasound was completely normal 4. Group B strep was positive. Glucola was 140 with a normal three-hour gtt. Most recent ultrasound on October 09 showed estimated weight at 6 lbs. 12 oz., LGA. Patient has had normal testing. Assessment and Plan Assessment: This is a pleasant 26-year-old 4 para 3 female 39-0/7 weeks gestation w ho presents to labor and delivery for elective repeat section and also she has a benign simple left labial cyst that we are going to drain as the time of . Patient's also been followed for thrombocytopenia of . Plan is repeat low transverse section and drainage of left labial cyst. Patient is going to have a stat CBC on admission and as long as her platelets are above 100 she'll be able to have regional anesthetic, however will obviously consult with anesthesia. Patient I have discussed the surgery and risks including risks of infection, bleeding, possible injury to bowel, bladder, vessels, and/or other organs. All the patient's questions are answered and a written consent obtained. (1) Previous delivery affecting Status: Acute Code(s): O34.219 - MATERNAL CARE FOR UNSP TYPE SCAR FROM PREVIOUS DEL SNOMED Code(s): 742800623 (2) Labial cyst Status: Acute Code(s): N90.7 - VULVAR CYST SNOMED Code(s): 332852131 (3) 39 weeks gestation of Status: Acute Code(s): Z3A.39 - 39 WEEKS GESTATION OF SNOMED Code(s): 59033348 (4) Gestational thrombocytopenia Status: Acute Code(s): O99.119 - OTH DIS OF BLD/BLD-FORM ORG/IMMUN MECHNSM COMP PREG,UNSP TRI; D69.6 - THROMBOCYTOPENIA, UNSPECIFIED SNOMED Code(s): 446035180 (5) Group B streptococcal carriage complicating Status: Acute Code(s): O99.820 - STREPTOCOCCUS B CARRIER STATE COMPLICATING SNOMED Code(s): 528131984023771
[2021-10-29 13:37] VITALS: BMI 38.7
[2021-10-30] MEDS ORDERED: LACTATED RINGERS 1,000 ML IV SCH (06:12)
[2021-10-30] MEDS ORDERED: CITRIC ACID-SODIUM CITRATE 15 ML CUP PO ONE (06:12)
[2021-10-30] MEDS ORDERED: LACTATED RINGERS 1,000 ML IV ONE (06:12)
[2021-10-30 06:28] LABS: Anisocytosis Slight; Basophils # (A) 0.1 k/uL (0-0.2); Basophils % (A) 1 %; Eosinophils # (A) 0.1 k/uL (0-0.7); Eosinophils % (A) 1 %; HCT 28.5 % (34.0-46.0); HGB 8.9 gm/dL (11.4-16.0); Hypochromasia Marked; Lymphocytes # (A) 1.7 k/uL (1.0-4.8); Lymphocytes % (A) 18 %; MCH 26.1 pg (25.0-35.0); MCHC 31.2 g/dL (31.0-37.0); MCV 83.8 fL (80.0-100.0); Mean Platelet Volume 9.5; Monocytes # (A) 0.6 k/uL (0-1.0); Monocytes % (A) 6 %; Neutrophils # (A) 7.3 k/uL (1.3-7.7); Neutrophils % (A) 74 %; Platelet Count 119 k/uL (150-450); Poikilocytosis Slight; RDW 16.6 % (11.5-15.5); WBC 9.9 k/uL (3.8-10.6)
[2021-10-30] MEDS ORDERED: diphenhydrAMINE 50 MG/ML 1 ML VIAL ONE (07:48)
[2021-10-30] MEDS ORDERED: MORPHINE SULFATE (PF) 0.3 MG/0.3 ML SYR ONE (07:48)
[2021-10-30] MEDS ORDERED: ONDANSETRON 4 MG/2 ML VIAL ONE (07:48)
[2021-10-30] MEDS ORDERED: OXYTOCIN 30 UNITS/500 ML NS BAG IV ONE (07:48)
[2021-10-30] MEDS ORDERED: PHENYLEPHRINE-0.9% NACL SYG 1,000 MCG/10 ML SYRINGE ONE (07:48)
[2021-10-30] MEDS ORDERED: KETOROLAC 15 MG/ML 1 ML VIAL ONE (07:48)
[2021-10-30] MEDS ORDERED: ONDANSETRON 4 MG/2 ML VIAL IVP PRN ×2 (08:14→08:31)
[2021-10-30] MEDS ORDERED: diphenhydrAMINE 50 MG/ML 1 ML VIAL IVP PRN ×2 (08:14→08:31)
[2021-10-30] MEDS ORDERED: MORPHINE SULFATE 2 MG/ML SYRINGE IVP PRN (08:14)
[2021-10-30] MEDS ORDERED: NALOXONE 0.4 MG/ML 1 ML VIAL IV PRN ×2 (08:14→08:31)
[2021-10-30] MEDS ORDERED: ZOLPIDEM 5 MG TAB PO PRN (08:31)
[2021-10-30] MEDS ORDERED: LANOLIN CREAM 5 GM TUBE TOPICAL PRN (08:31)
[2021-10-30] MEDS ORDERED: OXYTOCIN 30 UNITS/500 ML NS 30 UNIT in SALINE 1 500ML.BAG IV SCH (08:31)
[2021-10-30] MEDS ORDERED: diphenhydrAMINE 25 MG CAP PO PRN (08:31)
[2021-10-30] MEDS ORDERED: SIMETHICONE 80 MG CHEWABLE PO PRN (08:31)
[2021-10-30] MEDS ORDERED: METOCLOPRAMIDE 5 MG/ML 2 ML VIAL IVP PRN (08:31)
--- NOTE | 2021-10-30 08:34 | P.OP ---
Date of Procedure: 10/30/21 Preoperative Diagnosis: #1: 39-0/7 week intrauterine . #2: Previous section desires repeat. #3: Benign left labial cyst Postoperative Diagnosis: #1: Same. #2: Transverse lie Implants: Repeat low transverse section and drainage of left labial cyst Anesthesia: spinal Surgeon: Abdi Drake Lacquer Dipping Machine Operator #1: Anju Peck Estimated Blood Loss (ml): 600 Pathology: none sent Condition: stable Disposition: observation Indications for Procedure: Please see dictated H&P for intimate details of this patient's admission. Brief summary pleasant 26-year-old 4 para 3 female 39-0/7 weeks gestation admitted to labor and delivery for elective repeat section and also has a benign left labial cyst that she wishes to have drain. Patient is thin surgery and risks and risks of infection, bleeding, possible injury bowel, bladder, vessels, and/or other organs. All the patient's questions are answered and a written consent is obtained. Operative Findings: This was a vigorous viable female Apgars 9 and 9 delivery time is 0802 hrs. was transverse lie. Baby appeared grossly normal. There was a 1 cm benign left labial cyst Description of Procedure: This patient has a Metcalf catheter placed to straight drain. She is subsequently taken to the operating room where she sat up and spinal anesthetic is administered without incident. After an adequate level of anesthesia a scalpel is taken Pfannenstiel skin incision is then made. A second scalpel is taken down the fascia the fascia scored with a knife. Fascial incision extended bilaterally using the Ferreira scissors. Fascia is then dissected off the rectus muscles sharply. Rectus muscles are the peritoneum identified and entered sharply. Peritoneal incision extended superior and inferior without difficulty. Bladder peritoneum was taken sharply off the lower uterine segment. This time is palpable that the is now vertex. Scalpels taken low transverse uterine incision is made. Using a hemostat intrauterine cavity bluntly and there is loss of clear fluid. Initially there was a hand presenting through the incision this is reduced and the presentation is rotated to vertex presentation with fundal pressure delivers the head. Mouth and nares are bulb suctioned. Is no evidence of nuchal cord. With more fundal pressure deliver the rest this infant's body. This is a vigorous viable female infant Apgars 9 and 9 delivery time is 0802 hrs. Infant has spontaneous respiration and good cry and grossly appears normal. After delivery of the the umbilical cord is then doubly clamped and cut infant is handed off to the nurses in attendance. Placenta is then manually extracted intact. Uterus is then externalized and uterine incision demarcated with Lawson clamps. Cavity is explored and all debris removed. Cavities then closed using 0 Vicryl running locked fashion 2 layers. Excellent hemostasis is noted. Excess fluid is removed from the abdomen and pelvis. Uterus placed back into the abdomen. Final inspection of the incision shows a to be hemostatic. The peritoneum was identified and closed using 0 Vicryl running fashion. Rectus muscles reapproximated in 0 Vicryl interrupted fashion. The fascia is then closed using 0 PDS in a running fashion fascial incision is intact and hemostatic. Subcutaneous tissues and closed using a 3-0 Vicryl. Skin is and closed using louise. All counts are correct 3. There are no complications. Infant and mother are taken together birthing suite in satisfactory condition.
[2021-10-30] MEDS: KETOROLAC 15 MG/ML 1 ML VIAL IVP SCH ×2 (14:20→22:36)
[2021-10-30] MEDS: LACTATED RINGERS 1,000 ML IV SCH (14:21)
[2021-10-30] MEDS: SENNOSIDES-DOCUSATE SODIUM 1 EACH TAB PO SCH ×2 (19:56)
[2021-10-30] MEDS: ACETAMINOPHEN TAB 500 MG TAB PO PRN (19:56)
[2021-10-31] MEDS: IBUPROFEN 600 MG TAB PO PRN ×4 (04:41→23:23)
--- NOTE | 2021-10-31 06:21 | P.PNOBGPC ---
Subjective - Subjective Patient reports: Reports appetite normal, Reports voiding normally, Reports pain well controlled, Reports ambulating normally : doing well Objective - Vital Signs Latest vital signs: Vital Signs Temp Pulse Resp BP Pulse Ox 10/31/21 03:25 98.3 F 94 15 106/65 98 10/31/21 00:00 97.9 F 63 19 112/96 98 10/30/21 20:00 98.3 F 70 19 111/73 98 10/30/21 19:00 16 10/30/21 17:14 97 10/30/21 17:00 16 98 10/30/21 16:00 98.1 F 82 16 107/70 98 10/30/21 15:00 16 98 10/30/21 13:00 97.9 F 68 16 105/66 98 10/30/21 12:00 97.9 F 68 16 105/66 98 10/30/21 11:14 16 98 10/30/21 10:32 55 L 16 108/66 98 10/30/21 10:02 60 16 105/60 98 10/30/21 09:32 55 L 16 92/55 97 10/30/21 09:17 53 L 16 99/59 97 10/30/21 09:14 16 97 10/30/21 09:02 60 16 94/51 97 10/30/21 08:47 62 16 95/66 97 10/30/21 08:32 96.8 F L 71 16 102/49 94 L 10/30/21 08:31 96 10/30/21 08:14 16 96 Intake and Output 10/30/21 10/30/21 10/31/21 14:59 22:59 06:59 Intake Total 1000 500 Output Total 458 4000 988 Balance 542 -3500 -988 Intake: IV 400 Oral 600 500 Output: Urine 4000 700 Uretheral (Metcalf) 1800 Estimated Blood Loss 288 Output, Quantitative 458 Blood Loss Other: Voiding Method Indwelling Catheter Indwelling Catheter Indwelling Catheter # Voids 2 3 - Exam Lungs: bilateral: normal Chest: Normal S1, Normal S2 Extremities: Present: normal Abdomen: Present: normal appearance, soft. Absent: distention, tenderness Incision: Present: normal, dry, intact Uterus: Present: normal, firm - Labs Labs: Abnormal Lab Results - Last 24 Hours (Table) 10/30/21 Range/Units 06:10 RBC 3.40 L (3.80-5.40) m/uL Hgb 8.9 L (11.4-16.0) gm/dL Hct 28.5 L (34.0-46.0) % RDW 16.6 H (11.5-15.5) % Plt Count 119 L (150-450) k/uL Assessment and Plan Assessment: Post operative day #1. Patient is resting without complaints. Vital signs are stable she's afebrile. Uterus is firm nontender she's having normal lochia. Her incision is intact and dry. CBC is pending at time this dictation. Her preoperative hemoglobin was only 8.9 therefore I am going to prophylactically start her on iron. She is asymptomatic. Plan today is to encourage ambulation, allow the patient shower, check a CBC, and continue routine postoperative care. (1) Previous delivery affecting Current Visit: No Status: Acute Code(s): O34.219 - MATERNAL CARE FOR UNSP TYPE SCAR FROM PREVIOUS DEL SNOMED Code(s): 369668352 (2) Labial cyst Current Visit: No Status: Acute Code(s): N90.7 - VULVAR CYST SNOMED Code(s): 222501808 (3) 39 weeks gestation of Current Visit: No Status: Acute Code(s): Z3A.39 - 39 WEEKS GESTATION OF SNOMED Code(s): 60338167 (4) Gestational thrombocytopenia Current Visit: No Status: Acute Code(s): O99.119 - OTH DIS OF BLD/BLD-FORM ORG/IMMUN MECHNSM COMP PREG,UNSP TRI; D69.6 - THROMBOCYTOPENIA, UNSPECIFIED SNOMED Code(s): 125543568 (5) Group B streptococcal carriage complicating Current Visit: No Status: Acute Code(s): O99.820 - STREPTOCOCCUS B CARRIER STATE COMPLICATING SNOMED Code(s): 688294081703072
--- NOTE | 2021-10-31 06:35 | P.PN ---
Progress Note - Text Progress Note Date: 10/31/21 POD 1 C section with Duramorph spinal. Doing well, ambulating, able to micturate and passing flatus. LE strength is normal. no numbness/tingling. Mild pain with coughing, movement in lower abd. Mild pruritis. mom and baby are doing well this morning. No mention of headaches. kg de la fuente MD.
[2021-10-31] MEDS: KETOROLAC 15 MG/ML 1 ML VIAL IVP SCH ×3 (06:49→20:01)
[2021-10-31 07:44] LABS: Anisocytosis Slight; Basophils % (A) 0 %; Eosinophils # (A) 0.1 k/uL (0-0.7); Eosinophils % (A) 1 %; HCT 25.9 % (34.0-46.0); HGB 8.1 gm/dL (11.4-16.0); Hypochromasia Marked; Lymphocytes % (A) 10 %; MCH 26.3 pg (25.0-35.0); MCHC 31.1 g/dL (31.0-37.0); MCV 84.5 fL (80.0-100.0); Monocytes # (A) 0.5 k/uL (0-1.0); Monocytes % (A) 5 %; Neutrophils # (A) 8.2 k/uL (1.3-7.7); Neutrophils % (A) 83 %; Platelet Count 102 k/uL (150-450); Poikilocytosis Slight; RBC 3.07 m/uL (3.80-5.40); RDW 16.9 % (11.5-15.5); WBC 9.9 k/uL (3.8-10.6)
[2021-10-31] MEDS: ACETAMINOPHEN TAB 500 MG TAB PO PRN ×3 (07:52→20:14)
[2021-10-31] MEDS: SENNOSIDES-DOCUSATE SODIUM 1 EACH TAB PO SCH ×2 (07:55→19:46)
[2021-10-31] MEDS: FERROUS SULFATE 325 MG TAB PO SCH ×2 (07:57→19:46)
[2021-10-31] MEDS: LACTATED RINGERS 1,000 ML IV SCH ×2 (20:01→20:02)
[2021-11-01 00:17] VITALS: RESP 16
[2021-11-01] MEDS: ACETAMINOPHEN TAB 500 MG TAB PO PRN ×2 (03:10→09:25)
[2021-11-01] MEDS: IBUPROFEN 600 MG TAB PO PRN (06:00)
--- NOTE | 2021-11-01 06:59 | P.PNOBGPC ---
Subjective - Subjective Patient reports: Reports appetite normal, Reports voiding normally, Reports pain well controlled, Reports ambulating normally : doing well Objective - Vital Signs Latest vital signs: Vital Signs Temp Pulse Resp BP Pulse Ox 10/31/21 23:25 97.6 F 91 16 101/57 98 10/31/21 15:06 97.2 F L 86 20 106/68 98 10/31/21 12:00 97.5 F L 76 20 97/62 98 10/31/21 09:00 16 10/31/21 08:00 97.3 F L 80 20 108/62 96 10/31/21 07:00 17 Intake and Output 10/31/21 10/31/21 11/01/21 14:59 22:59 06:59 Output Total 300 Balance -300 Output: Urine 300 - Exam Lungs: bilateral: normal Chest: Normal S1, Normal S2 Extremities: Present: normal Abdomen: Present: normal appearance, soft. Absent: distention, tenderness Incision: Present: normal, dry, intact Uterus: Present: normal, firm - Labs Labs: Abnormal Lab Results - Last 24 Hours (Table) 10/31/21 Range/Units 06:43 RBC 3.07 L (3.80-5.40) m/uL Hgb 8.1 L (11.4-16.0) gm/dL Hct 25.9 L (34.0-46.0) % RDW 16.9 H (11.5-15.5) % Plt Count 102 L (150-450) k/uL Neutrophils # 8.2 H (1.3-7.7) k/uL Assessment and Plan Assessment: Postoperative day #2. Patient is resting without complaints wishes to go home. CBC yesterday showed her hemoglobin be 8.1 which is a appropriate drop from her surgery and her platelets were 102. Uterus is firm nontender and her incision is intact and dry. She's having normal lochia. Patient's ambulating, tolerating regular diet, and urinating without difficulty. Plan today is check a CBC if her hemoglobin and platelets are stable, she's definitely able go home follow up with me in 1 week for repeat CBC. (1) Previous delivery affecting Current Visit: No Status: Acute Code(s): O34.219 - MATERNAL CARE FOR UNSP TYPE SCAR FROM PREVIOUS DEL SNOMED Code(s): 835227769 (2) Labial cyst Current Visit: No Status: Acute Code(s): N90.7 - VULVAR CYST SNOMED Code(s): 058842373 (3) 39 weeks gestation of Current Visit: No Status: Acute Code(s): Z3A.39 - 39 WEEKS GESTATION OF SNOMED Code(s): 89010713 (4) Gestational thrombocytopenia Current Visit: No Status: Acute Code(s): O99.119 - OTH DIS OF BLD/BLD-FORM ORG/IMMUN MECHNSM COMP PREG,UNSP TRI; D69.6 - THROMBOCYTOPENIA, UNSPECIFIED SNOMED Code(s): 166821119 (5) Group B streptococcal carriage complicating Current Visit: No Status: Acute Code(s): O99.820 - STREPTOCOCCUS B CARRIER STATE COMPLICATING SNOMED Code(s): 297243059689512
--- NOTE | 2021-11-01 07:06 | P.DS ---
Providers Date of admission: 10/30/21 05:58 Expected date of discharge: 11/01/21 Attending physician: Abdi Drake Primary care physician: Stated None - Discharge Diagnosis(es) (1) Previous delivery affecting Current Visit: No Status: Acute (2) Labial cyst Current Visit: No Status: Acute (3) 39 weeks gestation of Current Visit: No Status: Acute (4) Gestational thrombocytopenia Current Visit: No Status: Acute (5) Group B streptococcal carriage complicating Current Visit: No Status: Acute Hospital Course: Please see dictated H&P for intimate details of this patient's admission. Brief summary this is a pleasant 26-year-old 4 para 3 female 39 weeks gestation who is admitted to labor and delivery for elective repeat section. She also has known thrombocytopenia . Patient is admitted she was uncomplicated repeat low transverse section for a viable female infant. Please see dictated operative note. Postoperative patient did well postoperatively and 1 her platelets were 102 hemoglobin was 8.1, she is chronically anemic. Postoperative 2 she continued to well felt be stable for discharge home follow up with me in 1 week for repeat CBC and incision check. Procedures: Repeat low transverse section Patient Condition at Discharge: Good Plan - Discharge Summary Discharge Rx Participant: Yes New Discharge Prescriptions: New Ferrous Sulfate [Iron (65 MG Elemental)] 325 mg PO BID-W/MEALS #60 tab Ibuprofen [Motrin] 600 mg PO Q6H PRN #40 tab PRN Reason: Pain oxyCODONE HCL [OxyIR] 5 mg PO Q4HR PRN #18 tab PRN Reason: Pain No Action Pnv,Calcium 72/Iron/Folic Acid [ Plus Tablet] 1 each PO DAILY Discharge Medication List Pnv,Calcium 72/Iron/Folic Acid [ Plus Tablet] 1 each PO DAILY 10/29/21 [History] Ferrous Sulfate [Iron (65 MG Elemental)] 325 mg PO BID-W/MEALS #60 tab 11/01/21 [Rx] Ibuprofen [Motrin] 600 mg PO Q6H PRN #40 tab 11/01/21 [Rx] oxyCODONE HCL [OxyIR] 5 mg PO Q4HR PRN #18 tab 11/01/21 [Rx] Follow up Appointment(s)/Referral(s): Abdi Drake MD [STAFF PHYSICIAN] - 12/08/21 3:00 pm (Postoperative incision check on November 10 at 1:30 p.m.) Patient Instructions/Handouts: (DC), Thrombocytopenia (DC) Activity/Diet/Wound Care/Special Instructions: No heavy lifting or strenuous activity for 6 weeks. No intercourse or anything per vagina for 6 weeks. Please call if any fever, chills, excessive vaginal bleeding, and/or abdominal pain. Discharge Disposition: HOME SELF-CARE
[2021-11-01 07:18] LABS: Anisocytosis Slight; Basophils % (A) 0 %; Eosinophils # (A) 0.1 k/uL (0-0.7); Eosinophils % (A) 1 %; HCT 25.8 % (34.0-46.0); HGB 7.8 gm/dL (11.4-16.0); Hypochromasia Marked; Lymphocytes # (A) 1.3 k/uL (1.0-4.8); Lymphocytes % (A) 13 %; MCH 25.8 pg (25.0-35.0); MCHC 30.2 g/dL (31.0-37.0); MCV 85.5 fL (80.0-100.0); Mean Platelet Volume 10.1; Monocytes # (A) 0.5 k/uL (0-1.0); Monocytes % (A) 5 %; Neutrophils # (A) 8.4 k/uL (1.3-7.7); Neutrophils % (A) 80 %; Platelet Count 100 k/uL (150-450); Poikilocytosis Slight; RBC 3.02 m/uL (3.80-5.40); RDW 16.9 % (11.5-15.5); WBC 10.5 k/uL (3.8-10.6)
[2021-11-01 08:06] VITALS: BP 121/60; PULSE 71; TEMP 98
[2021-11-01] MEDS: FERROUS SULFATE 325 MG TAB PO SCH (09:25)
== END 2021-11-01 09:45 | disposition home or self-care (01) | DRG 787 ==
LOC: 4FBP 05:58
PROVIDERS: ADMIT Obstetrics & Gynecology; ATTEND Obstetrics & Gynecology
PROC: 10D00Z1 Extraction of Products of Conception, Low, Open Approach (ICD-10-PCS; principal; 2021-10-30 08:00)
PROC: 0U9MXZZ Drainage of Vulva, External Approach (ICD-10-PCS; principal; 2021-10-30 08:00)
DX: O34.211 Maternal care for low transverse scar from previous cesarean delivery (principal); O99.12 Other diseases of the blood and blood-forming organs and certain disorders involving the immune mechanism complicating childbirth; Z37.0 Single live birth; D69.59 Other secondary thrombocytopenia; O99.824 Streptococcus B carrier state complicating childbirth; N90.7 Vulvar cyst; O99.62 Diseases of the digestive system complicating childbirth; O75.89 Other specified complications of labor and delivery; O99.73 Diseases of the skin and subcutaneous tissue complicating the puerperium; O32.2XX0 Maternal care for transverse and oblique lie, not applicable or unspecified; O99.02 Anemia complicating childbirth; L29.9 Pruritus, unspecified; K21.9 Gastro-esophageal reflux disease without esophagitis; D64.9 Anemia, unspecified; Z3A.39 39 weeks gestation of pregnancy; Z79.899 Other long term (current) drug therapy; Z87.891 Personal history of nicotine dependence; Z86.59 Personal history of other mental and behavioral disorders
CPT/HCPCS: 85025; 86850; 86900; 86901

== ENCOUNTER 2023-03-22 05:49 | Inpatient (IN) | payer OTHER ==
[2023-03-18 14:07] VITALS: BMI 41.5
--- NOTE | 2023-03-21 12:57 | P.HPOB ---
History of Present Illness H&P Date: 03/21/23 Chief Complaint: Repeat section and tubal ligation. This patient is a pleasant 27 yr female EDC 03/28/[birth year]23 estimated gestational age 39 1/7 wks who presents for repeat section and also is requesting permanent sterilization. was complicated by an abnormal QUAD screen (increased risk of Down Syndrome) with a negative evaluation per MFM. Cell-free DNA was 46XX. She has been watched with growth ultrasounds and NSTs. History of gestational thrombocytopenia, last platelets were 121 (February 05). has been otherwise uncomplicated. Review of Systems Genitourinary: Reports Menstruation: Reports amenorrhea Past Medical History Past Medical History: GERD/Reflux Additional Past Medical History / Comment(s): Mild gestational thrombocytopenia History of Any Multi-Drug Resistant Organisms: None Reported Past Surgical History: Section Additional Past Surgical History / Comment(s): C-SEC Past Anesthesia/Blood Transfusion Reactions: No Reported Reaction Additional Past Anesthesia/Blood Transfusion Reaction / Comment(s): NO GENERAL ANESTH BEFORE Past Psychological History: Anxiety, Depression Additional Psychological History / Comment(s): UNDER CONTROL AT THIS TIME Smoking Status: Former smoker Past Alcohol Use History: None Reported Past Drug Use History: None Reported - Past Family History Mother Family Medical History: No Reported History Medications and Allergies Home Medications Medication Instructions Recorded Confirmed Type Vit No.180/Iron/Folic 1 each PO DAILY 10/29/21 03/18/23 History [ Plus Tablet] Allergies Allergy/AdvReac Type Severity Reaction Status Date / Time No Known Allergies Allergy Verified 03/18/23 14:03 Exam - OBG Physical Exam Abdomen: bowel sounds normal, no diffuse tenderness, no bruit present, no guarding noted, no hepatomegaly, no splenomegaly, no mass Vulva: both: normal Vagina: normal moisture, no discharge Cervix: no lesion, no discharge Uterus: enlarged Results labs: O positive, Rubella Immune, RPR-HepB/C-HIV neg, Toxo neg, Glucola 113, Platelets 121 (February 05), Level III ultrasound normal. GBS negative. Assessment and Plan Assessment: This is a pleasant 27yr female who presents for repeat section and also requesting permanent sterilization. Plan is repeat section and bilateral partial salpingectomy. Patient understands that a tubal ligation is considered permanent, however there is a failure rate of <11/999 procedures done. She also understands that surgery itself inherently has risks: infection, bleeding, possible injury to bowel/bladder/vessels and/or other organs. All of her questions were answered and a written consent obtained. Will also check platelets due to history of mild gestational thrombocytopenia. (1) Family planning Status: Acute Code(s): Z30.09 - ENCOUNTER FOR OTH GENERAL CNSL AND ADVICE ON CONTRACEPTION SNOMED Code(s): 306479481 (2) 39 weeks gestation of Status: Acute Code(s): Z3A.39 - 39 WEEKS GESTATION OF SNOMED Code(s): 48128228 (3) Gestational thrombocytopenia Status: Acute Code(s): O99.119 - OTH DIS OF BLD/BLD-FORM ORG/IMMUN MECHNSM COMP PREG,UNSP TRI; D69.6 - THROMBOCYTOPENIA, UNSPECIFIED SNOMED Code(s): 316925662 (4) Previous delivery affecting Status: Acute Code(s): O34.219 - MATERNAL CARE FOR UNSP TYPE SCAR FROM PREVIOUS DEL SNOMED Code(s): 668042076
[2023-03-22] MEDS ORDERED: LACTATED RINGERS 1,000 ML IV ONE (06:06)
[2023-03-22] MEDS ORDERED: LACTATED RINGERS 1,000 ML IV SCH (06:06)
[2023-03-22] MEDS ORDERED: TRANEXAMIC 1,000 MG/100ML-NACL 1,000 MG in EMPTY BAG 1 BAG IV PRN (06:06)
[2023-03-22] MEDS ORDERED: miSOPROStoL 200 MCG TAB PO PRN (06:06)
[2023-03-22] MEDS ORDERED: CITRIC ACID-SODIUM CITRATE 15 ML CUP PO ONE (06:06)
[2023-03-22] MEDS ORDERED: OXYTOCIN 10 UNIT/ML 1 ML VIAL IM PRN (06:06)
[2023-03-22] MEDS ORDERED: METHYLERGONOVINE 0.2 MG/ML 1 ML AMP IM PRN (06:06)
[2023-03-22] MEDS ORDERED: CARBOPROST TROMETHAMINE 250 MCG/ML 1 ML AMP IM PRN (06:06)
[2023-03-22 06:31] LABS: Anisocytosis Slight; Basophils % (A) 0 %; Eosinophils # (A) 0.3 k/uL (0-0.7); Eosinophils % (A) 3 %; HCT 30.8 % (34.0-46.0); HGB 10.2 gm/dL (11.4-16.0); Hypochromasia Moderate; Lymphocytes # (A) 1.8 k/uL (1.0-4.8); Lymphocytes % (A) 19 %; MCH 29.3 pg (25.0-35.0); MCHC 33.1 g/dL (31.0-37.0); MCV 88.4 fL (80.0-100.0); Mean Platelet Volume 9.4; Monocytes # (A) 0.5 k/uL (0-1.0); Monocytes % (A) 6 %; Neutrophils # (A) 6.9 k/uL (1.3-7.7); Neutrophils % (A) 71 %; Platelet Count 110 k/uL (150-450); Poikilocytosis Slight; RBC 3.48 m/uL (3.80-5.40); RDW 16.2 % (11.5-15.5); WBC 9.7 k/uL (3.8-10.6)
[2023-03-22] MEDS ORDERED: ONDANSETRON 4 MG/2 ML VIAL ONE (07:45)
[2023-03-22] MEDS ORDERED: KETOROLAC 30 MG/ML 1 ML VIAL ONE (07:45)
[2023-03-22] MEDS ORDERED: MORPHINE SULFATE (PF) 0.3 MG/0.3 ML SYR ONE (07:45)
[2023-03-22] MEDS ORDERED: OXYTOCIN 30 UNITS/500 ML NS BAG IV ONE (07:45)
[2023-03-22] MEDS ORDERED: NALBUPHINE 10 MG/ML (10 ML MDV) IV PRN (08:32)
[2023-03-22] MEDS ORDERED: HYDROmorphone 0.5 MG/0.5 ML SYRINGE IVP PRN (08:32)
[2023-03-22] MEDS ORDERED: ONDANSETRON 4 MG/2 ML VIAL IVP PRN ×2 (08:32→08:34)
[2023-03-22] MEDS ORDERED: NALOXONE 0.4 MG/ML 1 ML VIAL IV PRN ×2 (08:32→08:34)
[2023-03-22] MEDS ORDERED: diphenhydrAMINE 50 MG/ML 1 ML VIAL IVP PRN (08:34)
[2023-03-22] MEDS ORDERED: OXYTOCIN 30 UNITS/500 ML NS 30 UNIT in SALINE 1 500ML.BAG IV SCH (08:34)
[2023-03-22] MEDS ORDERED: METOCLOPRAMIDE 5 MG/ML 2 ML VIAL IVP PRN (08:34)
[2023-03-22] MEDS ORDERED: SIMETHICONE 80 MG CHEWABLE PO PRN (08:34)
[2023-03-22] MEDS ORDERED: diphenhydrAMINE 25 MG CAP PO PRN (08:34)
[2023-03-22] MEDS ORDERED: ZOLPIDEM 5 MG TAB PO PRN (08:34)
--- NOTE | 2023-03-22 08:41 | P.OP ---
Date of Procedure: 03/22/23 Preoperative Diagnosis: #1: 39 and one sevenths week intrauterine . #2: Previous section desires repeat. #3: Multi parity desires permanent sterilization. Postoperative Diagnosis: Same Procedure(s) Performed: Repeat low transverse section and bilateral partial salpingectomy Anesthesia: spinal Surgeon: Abdi Drake [employer] #1: Kerry Rosales Estimated Blood Loss (ml): 600 Pathology: other (Bilateral fallopian tube segments) Condition: stable Disposition: floor Indications for Procedure: Please see dictated H&P for intimate details of this patient's admission. Brief summary is a pleasant 27-year-old 5 para 4 female estimated gestational age 39 and one sevenths weeks who presents to labor and delivery for elective repeat section and permanent sterilization. Patient understands that a tubal ligation is considered permanent although there is a failure rate of less than 5 per thousand procedures done. She also understands that surgery itself has risks and risks of infection, bleeding, possible injury bowel, bladder, vessels, and other organs. All the patient's questions are answered and a written consent is obtained. Operative Findings: This is a vigorous viable female Apgars 8 and 9 delivery time is 0808 hrs. Patient had normal appearing uterus tubes and ovaries. Patient approximately 2 cm umbilical hernia, known. Description of Procedure: This patient has a Metcalf catheter placed to straight drain. She is subsequently taken to the operating room where she sat up and spinal anesthetic is administered without incident. The appropriate timeout is done. With an adequate level of anesthesia she has abdominal prep and drape. Scalpels then taken the previous Pfannenstiel incision is incised. A second scalpel is taken down the fascia the fascia scored with a knife. Fascial incision is extended bilaterally using Ferreira scissors. Fascia is then dissected sharply off the rectus muscles. Rectus muscles are the peritoneum identified and entered sharply. Perineal incision extended superior and inferior without difficulty. Bladder blade is then placed. Bladder peritoneum was taken sharply off the lower uterine segment. Scalpels and taken low transverse uterine incision is then made. Using a hemostat I enter the uterine cavity bluntly. There is loss of clear fluid. Uterine incision is then extended bluntly and the infant's head is delivered through the incision with fundal pressure. Mouth and nares are bulb suctioned. There is a nuchal cord 1. More fundal pressure deliver the rest of this infant's body. This is a vigorous viable female Apgars are 8 and 9 delivery time is 0808 hrs. After delivery of the the umbilical cord is doubly clamped and cut appears to be trivascular. The placenta is then manually extracted intact. There is some irregularity to the anterior part of the uterus that this is felt to be completely free of any retained tissue. With this done the uterine incision then closed using 0 Vicryl running locked fashion 2 layers. Excellent hemostasis is noted. Then turned my attention to the left fallopian tube approximately 4 cm from the cornual inse rtion a small window is made to the mesial salpinx with Bovie cautery. Using a 2-0 silk I doubly ligate a 2 cm segment of tube this is excised and handed off to pathology. Cauterization is done of the tubal ends. Excellent hemostasis is noted. Using a similar technique the right fallopian tube has a segment excised. With this completed, excess fluid is removed from the abdomen and pelvis uterus is placed back into the abdomen. Final inspection of the uterine incision and tubal ends shows a to be hemostatic. The parietal peritoneum was then closed using 0 Vicryl running fashion. Rectus muscles are reapproximated in 0 Vicryl interrupted fashion. Fascia is then closed using 0 PDS. Fascial incision is intact and hemostatic. Subcutaneous tissues and closed using a 3-0 Vicryl. Skin is and closed using louise. All counts are correct 3. There are no complications. and mother taken the birthing suite in satisfactory condition.
[2023-03-22] MEDS: ACETAMINOPHEN TAB 500 MG TAB PO SCH ×3 (09:47→23:19)
[2023-03-22] MEDS: SENNOSIDES-DOCUSATE SODIUM 1 EACH TAB PO SCH ×2 (11:01→20:12)
[2023-03-22] MEDS: KETOROLAC 15 MG/ML 1 ML VIAL IVP SCH ×2 (14:24→20:12)
[2023-03-22] MEDS: IBUPROFEN 600 MG TAB PO SCH ×2 (19:56→19:57)
[2023-03-22] MEDS: LACTATED RINGERS 1,000 ML IV SCH (19:56)
[2023-03-23] MEDS: IBUPROFEN 600 MG TAB PO SCH ×4 (02:25→21:18)
[2023-03-23] MEDS: LACTATED RINGERS 1,000 ML IV SCH ×2 (02:39→09:55)
[2023-03-23] MEDS: KETOROLAC 15 MG/ML 1 ML VIAL IVP SCH ×2 (02:39→09:50)
[2023-03-23] MEDS: ACETAMINOPHEN TAB 500 MG TAB PO SCH ×3 (05:25→17:15)
[2023-03-23 06:34] LABS: Anisocytosis Slight; Basophils % (A) 0 %; Eosinophils # (A) 0.1 k/uL (0-0.7); Eosinophils % (A) 2 %; HCT 28.8 % (34.0-46.0); Hypochromasia Marked; Lymphocytes # (A) 1.3 k/uL (1.0-4.8); Lymphocytes % (A) 17 %; MCH 28.4 pg (25.0-35.0); MCHC 31.2 g/dL (31.0-37.0); Mean Platelet Volume 9.8; Monocytes # (A) 0.4 k/uL (0-1.0); Monocytes % (A) 6 %; Neutrophils # (A) 5.7 k/uL (1.3-7.7); Neutrophils % (A) 74 %; Poikilocytosis Slight; RBC 3.17 m/uL (3.80-5.40); RDW 16.2 % (11.5-15.5); WBC 7.7 k/uL (3.8-10.6)
--- NOTE | 2023-03-23 06:48 | P.PNOBGPC ---
Subjective - Subjective Patient reports: Reports appetite normal, Reports voiding normally, Reports pain well controlled, Reports ambulating normally : doing well Objective - Vital Signs Latest vital signs: Vital Signs Temp Pulse Resp BP Pulse Ox 03/23/23 05:00 97 03/23/23 04:00 97.9 F 59 L 16 107/67 97 03/23/23 01:00 97 03/23/23 00:00 97.6 F 57 L 15 110/74 97 03/22/23 21:00 98 03/22/23 20:00 97.8 F 53 L 15 110/70 98 03/22/23 17:00 97 03/22/23 15:25 96.4 F L 52 L 16 96/60 98 03/22/23 15:00 52 L 16 96/60 03/22/23 13:32 97 03/22/23 12:05 50 L 16 100/58 03/22/23 12:04 50 L 16 100/58 03/22/23 11:00 51 L 16 105/59 03/22/23 10:38 51 L 16 105/59 03/22/23 10:08 51 L 16 109/57 03/22/23 09:37 53 L 16 103/57 97 03/22/23 09:32 53 L 16 100/53 97 03/22/23 09:23 53 L 16 100/53 97 03/22/23 09:08 55 L 16 99/57 97 03/22/23 08:53 57 L 16 102/57 97 03/22/23 08:49 96.9 F L 60 16 108/54 96 03/22/23 08:38 96.9 F L 60 16 108/54 96 03/22/23 08:32 96 Intake and Output 03/22/23 03/22/23 03/23/23 14:59 22:59 06:59 Intake Total 100 Output Total 50 400 700 Balance 50 -400 -700 Intake: Oral 100 Output: Urine 50 400 700 Uretheral (Metcalf) 50 400 Other: # Voids 0 1 - Exam Lungs: bilateral: normal Chest: Normal S1, Normal S2 Extremities: Present: normal Abdomen: Present: normal appearance, soft. Absent: distention, tenderness Incision: Present: normal, dry, intact Uterus: Present: normal, firm - Labs Labs: Abnormal Lab Results - Last 24 Hours (Table) 03/23/23 Range/Units 05:14 RBC 3.17 L (3.80-5.40) m/uL Hgb 9.0 L (11.4-16.0) gm/dL Hct 28.8 L (34.0-46.0) % RDW 16.2 H (11.5-15.5) % Assessment and Plan Assessment: Postoperative day #1. Vital signs are stable she's afebrile. Uterus is firm nontender and her incision is intact and dry. Patient's having normal lochia. CBC shows hemoglobin 9 which is appropriate drop from her preoperative hemoglobin. Platelets are pending. Patient's tolerating regular diet, ambulating, urinating without difficulty. Plan today is to allow the patient shower, continue routine postoperative care. (1) Family planning Current Visit: No Status: Acute Code(s): Z30.09 - ENCOUNTER FOR OTH GENERAL CNSL AND ADVICE ON CONTRACEPTION SNOMED Code(s): 298152740 (2) 39 weeks gestation of Current Visit: No Status: Acute Code(s): Z3A.39 - 39 WEEKS GESTATION OF SNOMED Code(s): 91376596 (3) Gestational thrombocytopenia Current Visit: No Status: Acute Code(s): O99.119 - OTH DIS OF BLD/BLD-FORM ORG/IMMUN MECHNSM COMP PREG,UNSP TRI; D69.6 - THROMBOCYTOPENIA, UNSPECIFIED SNOMED Code(s): 617088667 (4) Previous delivery affecting Current Visit: No Status: Acute Code(s): O34.219 - MATERNAL CARE FOR UNSP TYPE SCAR FROM PREVIOUS DEL SNOMED Code(s): 948744310
[2023-03-23 07:40] LABS: Platelet Count 83 k/uL (150-450)
[2023-03-23] MEDS: SENNOSIDES-DOCUSATE SODIUM 1 EACH TAB PO SCH ×2 (08:24→20:50)
--- NOTE | 2023-03-23 09:04 | P.PN ---
Progress Note - Text Date: 03/23/2023 Time: 6:58 The patient is status post section Vital signs stable VAS: 0-10 Patient has no complaints of pain. The patient incurred some minimal itching yesterday, this itching is now subsiding. Pain meds to be managed by service.
[2023-03-24] MEDS: ACETAMINOPHEN TAB 500 MG TAB PO SCH ×3 (00:22→11:08)
[2023-03-24] MEDS: IBUPROFEN 600 MG TAB PO SCH ×3 (02:17→13:56)
--- NOTE | 2023-03-24 06:33 | P.PNOBGPC ---
Subjective - Subjective Patient reports: Reports appetite normal, Reports voiding normally, Reports pain well controlled, Reports ambulating normally : doing well Objective - Vital Signs Latest vital signs: Vital Signs Temp Pulse Resp BP Pulse Ox 03/24/23 05:00 97 03/24/23 01:00 97 03/24/23 00:00 98.0 F 76 15 106/68 97 03/23/23 21:00 97 03/23/23 17:00 98 03/23/23 15:43 97.9 F 77 16 108/67 97 03/23/23 13:00 98 03/23/23 09:00 98 03/23/23 08:00 97.8 F 87 16 106/66 98 Intake and Output 03/23/23 03/23/23 03/24/23 14:59 22:59 06:59 Other: # Voids 2 2 2 - Exam Lungs: bilateral: normal Chest: Normal S1, Normal S2 Extremities: Present: normal Abdomen: Present: normal appearance, soft. Absent: distention, tenderness Incision: Present: normal, dry, intact Uterus: Present: normal, firm - Labs Labs: Abnormal Lab Results - Last 24 Hours (Table) 03/23/23 Range/Units 05:14 RBC 3.17 L (3.80-5.40) m/uL Hgb 9.0 L (11.4-16.0) gm/dL Hct 28.8 L (34.0-46.0) % RDW 16.2 H (11.5-15.5) % Plt Count 83 L (150-450) k/uL Assessment and Plan Assessment: Postoperative day #2. Patient is resting without new complaints and wishes to go home. Vital signs are stable she is afebrile. Uterus is firm nontender her incision is intact and dry. She is having normal lochia. CBC yesterday showed her hemoglobin 9 which is appropriate for her preoperative hemoglobin her platelets however did fall to 83 from 110. Plan today is to continue routine postoperative care. I am going to repeat her CBC if her platelets are stable she be able to be discharged home to follow up with those with me in 1 week. If her platelets to go down significantly I recommended to stay another day to repeat her CBC. (1) Family planning Current Visit: No Status: Acute Code(s): Z30.09 - ENCOUNTER FOR OTH GENERAL CNSL AND ADVICE ON CONTRACEPTION SNOMED Code(s): 653050855 (2) 39 weeks gestation of Current Visit: No Status: Acute Code(s): Z3A.39 - 39 WEEKS GESTATION OF SNOMED Code(s): 68480551 (3) Gestational thrombocytopenia Current Visit: No Status: Acute Code(s): O99.119 - OTH DIS OF BLD/BLD-FORM ORG/IMMUN MECHNSM COMP PREG,UNSP TRI; D69.6 - THROMBOCYTOPENIA, UNSPECIFIED SNOMED Code(s): 054821672 (4) Previous delivery affecting Current Visit: No Status: Acute Code(s): O34.219 - MATERNAL CARE FOR UNSP TYPE SCAR FROM PREVIOUS DEL SNOMED Code(s): 074800573
[2023-03-24 06:38] LABS: Anisocytosis Slight; Basophils % (A) 0 %; Eosinophils # (A) 0.1 k/uL (0-0.7); Eosinophils % (A) 1 %; HCT 28.1 % (34.0-46.0); HGB 8.8 gm/dL (11.4-16.0); Hypochromasia Marked; Lymphocytes # (A) 1.6 k/uL (1.0-4.8); Lymphocytes % (A) 16 %; MCH 28.7 pg (25.0-35.0); MCHC 31.4 g/dL (31.0-37.0); MCV 91.2 fL (80.0-100.0); Mean Platelet Volume 9.1; Monocytes # (A) 0.5 k/uL (0-1.0); Monocytes % (A) 5 %; Neutrophils # (A) 7.8 k/uL (1.3-7.7); Neutrophils % (A) 77 %; Platelet Count 94 k/uL (150-450); Poikilocytosis Slight; RBC 3.07 m/uL (3.80-5.40); RDW 16.5 % (11.5-15.5); WBC 10.2 k/uL (3.8-10.6)
--- NOTE | 2023-03-24 06:39 | P.DS ---
Providers Date of admission: 03/22/23 05:49 Expected date of discharge: 03/24/23 Attending physician: Abdi Drake Primary care physician: Stated None - Discharge Diagnosis(es) (1) Family planning Current Visit: No Status: Acute (2) 39 weeks gestation of Current Visit: No Status: Acute (3) Gestational thrombocytopenia Current Visit: No Status: Acute (4) Previous delivery affecting Current Visit: No Status: Acute Hospital Course: Please see dictated H&P for intimate details of this patient's admission. In brief summary this pleasant 27-year-old 5 para 4 female 39 and one sevenths weeks gestation admitted to labor and delivery for elective repeat section and tubal ligation. Patient undergoes above-named surgery for viable female infant. Of note the patient does have known gestational thrombocytopenia platelets were 110 prior to surgery and 83 after surgery. Patient's having no bleeding problems. On postoperative 2 patient's felt be stable for discharge home follow up with me in 1 week. We'll repeat the platelets at that time. Procedures: Repeat low transverse section and bilateral partial salpingectomy Patient Condition at Discharge: Good Plan - Discharge Summary Discharge Rx Participant: Yes New Discharge Prescriptions: New oxyCODONE HCL [OxyIR] 5 mg PO Q4HR PRN #18 tab PRN Reason: Pain Scale 4 - 6 Ibuprofen [Motrin] 600 mg PO Q6H #40 tab No Action Vit No.180/Iron/Folic [ Plus Tablet] 1 each PO DAILY Discharge Medication List Vit No.180/Iron/Folic [ Plus Tablet] 1 each PO DAILY 10/29/21 [History] Ibuprofen [Motrin] 600 mg PO Q6H #40 tab 03/24/23 [Rx] oxyCODONE HCL [OxyIR] 5 mg PO Q4HR PRN #18 tab 03/24/23 [Rx] Follow up Appointment(s)/Referral(s): Abdi Drake MD [STAFF PHYSICIAN] - 1 Week (Postoperative visit on 03/30/23 @09:15 appointment is on 05/05/23 @11:15) Patient Instructions/Handouts: (DC) Activity/Diet/Wound Care/Special Instructions: No heavy lifting or strenuous activity for 6 weeks. No intercourse or anything per vagina for 6 weeks. Please call if any fever, chills, excessive vaginal bleeding, and/or abdominal pain. Discharge Disposition: HOME SELF-CARE
[2023-03-24 09:30] VITALS: BP 114/74; PULSE 99; RESP 16; TEMP 97.5
[2023-03-24] MEDS: SENNOSIDES-DOCUSATE SODIUM 1 EACH TAB PO SCH (11:29)
== END 2023-03-24 14:30 | disposition home or self-care (01) | DRG 539 ==
LOC: 4FBP 05:49
PROVIDERS: ADMIT Obstetrics & Gynecology; ATTEND Obstetrics & Gynecology
PROC: 0UB70ZZ Excision of Bilateral Fallopian Tubes, Open Approach (ICD-10-PCS; principal; 2023-03-22 07:45)
PROC: 10D00Z1 Extraction of Products of Conception, Low, Open Approach (ICD-10-PCS; principal; 2023-03-22 07:45)
DX: O34.211 Maternal care for low transverse scar from previous cesarean delivery (principal); O99.12 Other diseases of the blood and blood-forming organs and certain disorders involving the immune mechanism complicating childbirth; Z30.2 Encounter for sterilization; D69.59 Other secondary thrombocytopenia; Z28.310 Unvaccinated for COVID-19; O69.81X0 Labor and delivery complicated by cord around neck, without compression, not applicable or unspecified; K21.9 Gastro-esophageal reflux disease without esophagitis; O99.62 Diseases of the digestive system complicating childbirth; K42.9 Umbilical hernia without obstruction or gangrene; Z37.0 Single live birth; Z3A.39 39 weeks gestation of pregnancy; Z79.899 Other long term (current) drug therapy; Z87.891 Personal history of nicotine dependence
CPT/HCPCS: 85025; 86850; 86900; 86901; 88302

== ENCOUNTER → 2024-01-10 | Outpatient (CLI) | payer OTHER ==
--- NOTE | 2024-01-10 11:47 | XR ---
EXAMINATION TYPE: XR cervical spine comp DATE OF EXAM: 01/10/2024 COMPARISON: NONE CLINICAL INDICATION: Female, 28 years old with history of M54.12RADICULOPATHY, CERVICAL REGION; FINDINGS: Minimal anterior listhesis C3-4 and C4-5. Straightening of the cervical spine can be associated with muscular spasm. No compression deformities. Odontoid intact. Mild facet arthropathy C6-C7. IMPRESSION: Straightening the cervical spine with minimal grade 1 anterolisthesis as discussed above. Consider fo llow-up MRI.
== END | disposition home or self-care (01) ==
LOC: RADXRMAIN 11:11
PROVIDERS: ATTEND Family Medicine
DX: M43.12 Spondylolisthesis, cervical region (principal); M54.12 Radiculopathy, cervical region
CPT/HCPCS: 72050

== ENCOUNTER → 2024-04-19 | Outpatient (CLI) | payer OTHER ==
--- NOTE | 2024-04-19 16:53 | XR ---
EXAMINATION TYPE: XR abdomen 1V DATE OF EXAM: 04/19/2024 COMPARISON: 07/23/2018 INDICATION: Generalized abdominal pain TECHNIQUE: Single view abdomen FINDINGS: There is a normal bowel gas pattern. Fecal debris is in the ascending colon region Psoas margins are normal. No organomegaly is present. There is some minimal prominence of the pubic symphysis space. Sacroiliac joints appear normal. No acute osseous abnormality is otherwise evident. IMPRESSION: 1. No acute changes within the abdomen. 2. There may be some mild prominence of the symphysis space [facility], , 04/19/2024 4:51 PM
== END | disposition home or self-care (01) ==
LOC: RADXRMAIN 16:14
PROVIDERS: ATTEND Family Medicine
DX: R10.84 Generalized abdominal pain (principal)
CPT/HCPCS: 74018

== ENCOUNTER 2024-05-05 11:33 | Emergency (ER) | payer OTHER ==
--- NOTE | 2024-05-05 12:33 | ED ---
Abdominal Pain HPI - General Chief Complaint: Abdominal Pain Stated Complaint: abd pain Time Seen by Provider: 05/05/24 11:55 Source: patient, RN notes reviewed Mode of arrival: ambulatory Limitations: no limitations - History of Present Illness Initial Comments: This is a 29-year-old female who presents to the emergency department for abdominal pain. Patient reports epigastric pain for the last 3 weeks. This is becoming more frequent and more intense. States that it is occurring almost every day at this point, but seems to be worse after eating. The pain starts in the epigastric region and radiates around to her back. Unsure if any side of th e abdomen is worse than the other. She saw her primary care provider and was started on different medications for acid reflux, but has not gotten any better. She has associated nausea but no vomiting. Denies any fevers/chills or diarrhea/constipation. MD Complaint: abdominal pain - Related Data Home Medications Medication Instructions Recorded Confirmed Vit No.180/Iron/Folic 1 each PO DAILY 10/29/21 03/22/23 [ Plus Tablet] Previous Rx's Medication Instructions Recorded Ibuprofen [Motrin] 600 mg PO Q6H #40 tab 03/24/23 oxyCODONE HCL [OxyIR] 5 mg PO Q4HR PRN #18 tab 03/24/23 Ketorolac [Toradol] 10 mg PO Q6HR PRN #15 tab 05/05/24 Metoclopramide [Reglan] 10 mg PO Q6H PRN #20 tab 05/05/24 Ondansetron Odt [Zofran Odt] 4 mg PO Q8HR PRN #20 tab 05/05/24 Allergies Allergy/AdvReac Type Severity Reaction Status Date / Time No Known Allergies Allergy Verified 03/22/23 06:07 Review of Systems ROS Statement: Those systems with pertinent positive or pertinent negative responses have been documented in the HPI. ROS Other: All systems not noted in ROS Statement are negative. Past Medical History Past Medical History: GERD/Reflux Additional Past Medical History / Comment(s): Mild gestational thrombocytopenia, History of Any Multi-Drug Resistant Organisms: None Reported Past Surgical History: Section, Tubal Ligation Additional Past Surgical History / Comment(s): C-SEC Past Anesthesia/Blood Transfusion Reactions: No Reported Reaction Additional Past Anesthesia/Blood Transfusion Reaction / Comment(s): NO GENERAL ANESTH BEFORE Past Psychological History: Anxiety, Depression Smoking Status: Former smoker Past Alcohol Use History: None Reported Past Drug Use History: None Reported - Past Family History Mother Family Medical History: No Reported History General Exam Limitations: no limitations General appearance: alert, in no apparent distress Head exam: Present: atraumatic, normocephalic, normal inspection Respiratory exam: Present: normal lung sounds bilaterally. Absent: respiratory distress, wheezes, rales, rhonchi, stridor Cardiovascular Exam: Present: regular rate, normal rhythm, normal heart sounds. Absent: systolic murmur, diastolic murmur, rubs, gallop, clicks GI/Abdominal exam: Present: soft, tenderness (Epigastric), normal bowel sounds. Absent: distended Neurological exam: Present: alert, oriented X3, CN II-XII intact Psychiatric exam: Present: normal affect, normal mood Skin exam: Present: warm, dry, intact, normal color. Absent: rash Course Vital Signs 05/05/24 05/05/24 05/05/24 11:43 12:44 13:03 Temperature 97.6 F 98.2 F 98.1 F Pulse Rate 65 73 87 Respiratory 20 18 16 Rate Blood Pressure 161/111 127/93 146/89 O2 Sat by Pulse 99 99 99 Oximetry 05/05/24 05/05/24 14:00 15:04 Temperature 97.8 F 97.9 F Pulse Rate 89 65 Respiratory 17 18 Rate Blood Pressure 109/56 108/61 O2 Sat by Pulse 99 98 Oximetry Medical Decision Making - Medical Decision Making This is a 29 year old female who presents to the emergency department for abdominal pain. Was pt. sent in by a medical professional or institution? @ -No Did you speak to anyone other than the patient for history? @ -No Did you review nursing and triage notes? @ -Yes, and I agree, it is accurate with regards to the patient's symptoms. Were old charts reviewed? @ -No Differential Diagnosis? @ -Differential Abdominal Pain Women: Appendicitis, Cholecystitis, diverticulosis, ischemic bowel, pancreatitis, hepatitis, UTI, gastroenteritis, AAA, incarcerated hernia, bowel obstruction, constipation, inflammatory bowel, hepatitis, peptic ulcer disease, splenic infarction, perforated viscus, vulvitis, ovarian torsion, PID, kidney stone, placenta abruption, this is not meant to be an all-inclusive list EKG interpreted by me (3pts min.)? @ -Not obtained X-rays interpreted by me (1pt min.)? @ -Not obtained CT interpreted by me (1pt min.)? @ -Not obtained U/S interpreted by me (1pt. min.)? @ -Gallbladder US obtained. My interpretation identifies no evidence of gallbladder wall thickening. What testing was considered but not performed? (CT, X-rays, U/S, labs)? Why? @ -None What meds were considered but not given? Why? @ -None Did you discuss the management of the patient with other professionals? @ -Yes, Dr. Donahue, general surgery, who advised that if symptoms can be controlled in the emergency department she can be discharged home with outpatient follow up. Did you reconcile home meds? @ -No Was smoking cessation discussed for >3mins.? @ -No Was critical care preformed (if so, how long)? @ -No Were there social determinants of health that impacted care today? How? (Homelessness, low income, unemployed, alcoholism, drug addiction, transportation, low edu. Level, literacy, decrease access to med. care, senior living, rehab)? @ -No Was there de-escalation of care discussed even if they declined? (Discuss DNR or withdrawal of care, Hospice)? @ -No What co-morbidities impacted this encounter? (DM, HTN, Smoking, COPD, CAD, Cancer, CVA, Hep., AIDS, mental health diagnosis, sleep apnea, morbid obesity)? @ -None Was patient admitted / discharged? @ -Discharged. Lab work demonstrates a mildly elevated lipase of 364 and was o therwise unremarkable. Gallbladder ultrasound obtained demonstrating biliary debris with a positive sonographic Sinclair sign. They advised correlation for acute cholecystitis. However, there is no gallbladder wall thickening or pericholecystic fluid. Patient more likely to be having symptomatic biliary colic. Case discussed with Dr. Donahue, general surgery. He advised that if her symptoms can be controlled in the emergency department she can be discharged home with follow-up outpatient. Patient's symptoms were well-controlled in the emergency department. Prescription for pain and nausea medication provided. She is also advised to follow a bland and low-fat diet for the meantime to red uce the risk of symptom recurrence. She was also given information for follow- up with general surgery. Patient discharged home in stable condition. Case discussed with ED attending Dr. Cook. Return precautions reviewed in depth, the patient is instructed to return to the emergency department with any new, worsening, or concerning symptoms. Patient verbalized understanding. Undiagnosed new problem with uncertain prognosis? @ -None Drug Therapy requiring intensive monitoring for toxicity (Heparin, Nitro, Insulin, Cardizem)? @ -None Were any procedures done? @ -None Diagnosis/symptom? @ -Biliary colic Acute, or Chronic, or Acute on Chronic? @ -Acute Uncomplicated (without systemic symptoms) or Complicated (systemic symptoms)? @ -Uncomplicated Side effects of treatment? @ -None Exacerbation, Progression, or Severe Exacerbation] @ -Not applicable Poses a threat to life or bodily function? @ -No - Lab Data Result diagrams: 05/05/24 12:06 05/05/24 12:06 Lab Results 05/05/24 05/05/24 05/05/24 Range/Units 12:06 12:06 12:06 WBC 5.7 (3.8-10.6) k/uL RBC 4.52 (3.80-5.40) m/uL Hgb 10.5 L (11.4-16.0) gm/dL Hct 34.9 (34.0-46.0) % MCV 77.2 L (80.0-100.0) fL MCH 23.2 L (25.0-35.0) pg MCHC 30.1 L (31.0-37.0) g/dL RDW 16.3 H (11.5-15.5) % Plt Count 176 (150-450) k/uL MPV 8.1 Neutrophils % 73 % Lymphocytes % 17 % Monocytes % 6 % Eosinophils % 3 % Basophils % 0 % Neutrophils # 4.2 (1.3-7.7) k/uL Lymphocytes # 1.0 (1.0-4.8) k/uL Monocytes # 0.3 (0-1.0) k/uL Eosinophils # 0.2 (0-0.7) k/uL Basophils # 0.0 (0-0.2) k/uL Hypochromasia Marked Anisocytosis Slight Microcytosis Slight Sodium 139 (137-145) mmol/L Potassium 4.1 (3.5-5.1) mmol/L Chloride 108 H (98-107) mmol/L Carbon Dioxide 26 (22-30) mmol/L Anion Gap 5 mmol/L BUN 13 (7-17) mg/dL Creatinine 0.82 (0.52-1.04) mg/dL Est GFR (CKD-EPI)AfAm >90 (>60 ml/min/1.73 sqM) Est GFR (CKD-EPI)NonAf >90 (>60 ml/min/1.73 sqM) Glucose 87 (74-99) mg/dL Plasma Lactic Acid Kyrie (0.7-2.0) mmol/L Calcium 8.9 (8.4-10.2) mg/dL Total Bilirubin 0.4 (0.2-1.3) mg/dL AST 23 (14-36) U/L ALT 15 (4-34) U/L Alkaline Phosphatase 94 (38-126) U/L Total Protein 6.4 (6.3-8.2) g/dL Albumin 4.0 (3.5-5.0) g/dL Amylase 61 (30-110) U/L Lipase 364 H (23-300) U/L Urine Color Urine Appearance (Clear) Urine pH (5.0-8.0) Ur Specific [place] (1.001-1.035) Urine Protein (Negative) Urine Glucose (UA) (Negative) Urine Ketones (Negative) Urine Blood (Negative) Urine Nitrite (Negative) Urine Bilirubin (Negative) Urine Urobilinogen (<2.0) mg/dL Ur Leukocyte Esterase (Negative) Urine HCG, Qual Not Detected (Not Detectd) 05/05/24 05/05/24 Range/Units 12:06 12:37 WBC (3.8-10.6) k/uL RBC (3.80-5.40) m/uL Hgb (11.4-16.0) gm/dL Hct (34.0-46.0) % MCV (80.0-100.0) fL MCH (25.0-35.0) pg MCHC (31.0-37.0) g/dL RDW (11.5-15.5) % Plt Count (150-450) k/uL MPV Neutrophils % % Lymphocytes % % Monocytes % % Eosinophils % % Basophils % % Neutrophils # (1.3-7.7) k/uL Lymphocytes # (1.0-4.8) k/uL Monocytes # (0-1.0) k/uL Eosinophils # (0-0.7) k/uL Basophils # (0-0.2) k/uL Hypochromasia Anisocytosis Microcytosis Sodium (137-145) mmol/L Potassium (3.5-5.1) mmol/L Chloride (98-107) mmol/L Carbon Dioxide (22-30) mmol/L Anion Gap mmol/L BUN (7-17) mg/dL Creatinine (0.52-1.04) mg/dL Est GFR (CKD-EPI)AfAm (>60 ml/min/1.73 sqM) Est GFR (CKD-EPI)NonAf (>60 ml/min/1.73 sqM) Glucose (74-99) mg/dL Plasma Lactic Acid Kyrie 1.6 (0.7-2.0) mmol/L Calcium (8.4-10.2) mg/dL Total Bilirubin (0.2-1.3) mg/dL AST (14-36) U/L ALT (4-34) U/L Alkaline Phosphatase (38-126) U/L Total Protein (6.3-8.2) g/dL Albumin (3.5-5.0) g/dL Amylase (30-110) U/L Lipase (23-300) U/L Urine Color Colorless Urine Appearance Clear (Clear) Urine pH 6.0 (5.0-8.0) Ur Specific [place] 1.019 (1.001-1.035) Urine Protein Negative (Negative) Urine Glucose (UA) Negative (Negative) Urine Ketones Negative (Negative) Urine Blood Negative (Negative) Urine Nitrite Negative (Negative) Urine Bilirubin Negative (Negative) Urine Urobilinogen <2.0 (<2.0) mg/dL Ur Leukocyte Esterase Negative (Negative) Urine HCG, Qual (Not Detectd) - Radiology Data Radiology results: report reviewed, image reviewed Disposition Clinical Impression: Biliary colic Disposition: HOME SELF-CARE Instructions (If sedation given, give patient instructions): Biliary Colic (ED), Low Fat Diet (ED) Additional Instructions: Return to the emergency department with any new, worsening, or concerning symptoms. Take the Toradol with Tylenol as needed for pain relief. If you choose to take the Toradol, do not take any other anti-inflammatories such as ibuprofen, take one or the other. The Zofran can be taken up to every 8 hours for nausea and vomiting and the Reglan can be taken up to every 6 hours for nausea and vomiting. Make sure you follow a bland and low-fat diet for the meantime to reduce the risk of symptom recurrence. Follow-up with general surgery as listed below. Prescriptions: Metoclopramide [Reglan] 10 mg PO Q6H PRN #20 tab PRN Reason: Nausea And Vomiting Ketorolac [Toradol] 10 mg PO Q6HR PRN #15 tab PRN Reason: Pain Ondansetron Odt [Zofran Odt] 4 mg PO Q8HR PRN #20 tab PRN Reason: Nausea And Vomiting Is patient prescribed a controlled substance at d/c from ED?: No Referrals: Cortez Diaz MD [Primary Care Provider] - 1-2 days Cholo Donahue MD [Medical Doctor] - 1-2 days Darin Herrera MD [STAFF PHYSICIAN] - 1-2 days Franklin Lemus DO [Doctor of Osteopathic Medicine] - 1-2 days
[2024-05-05 12:54] LABS: Anisocytosis Slight; Basophils % (A) 0 %; Eosinophils # (A) 0.2 k/uL (0-0.7); Eosinophils % (A) 3 %; HCT 34.9 % (34.0-46.0); HGB 10.5 gm/dL (11.4-16.0); Hypochromasia Marked; Lymphocytes % (A) 17 %; MCH 23.2 pg (25.0-35.0); MCHC 30.1 g/dL (31.0-37.0); MCV 77.2 fL (80.0-100.0); Mean Platelet Volume 8.1; Microcytosis Slight; Monocytes # (A) 0.3 k/uL (0-1.0); Monocytes % (A) 6 %; Neutrophils # (A) 4.2 k/uL (1.3-7.7); Neutrophils % (A) 73 %; Platelet Count 176 k/uL (150-450); RBC 4.52 m/uL (3.80-5.40); RDW 16.3 % (11.5-15.5); WBC 5.7 k/uL (3.8-10.6)
[2024-05-05] MEDS: KETOROLAC 15 MG/ML 1 ML VIAL IVP STA (12:58)
[2024-05-05] MEDS: SODIUM CHLORIDE 0.9% 1,000 ML IV STA (12:59)
[2024-05-05] MEDS: HYDROmorphone 1 MG/ML 1 ML SYRINGE IVP STA (12:59)
[2024-05-05 13:02] LABS: Appearance,Urine Clear (Clear); Bilirubin,Urine Negative (Negative); Blood,Urine Negative (Negative); Color,Urine Colorless; Glucose,Urine (UA) Negative (Negative); Ketones,Urine Negative (Negative); Leukocyte Esterase,Urine Negative (Negative); Nitrite,Urine Negative (Negative); Protein,Urine Negative (Negative); Specific Gravity,Urine 1.019 (1.001-1.035); Urobilinogen,Urine <2.0 mg/dL (<2.0)
[2024-05-05 13:05] LABS: ALT 15 U/L (4-34); AST 23 U/L (14-36); African American GFR (CKD) >90 (>60 ml/min/1.73 sqM); Alkaline Phosphatase 94 U/L (38-126); Amylase 61 U/L (30-110); Anion Gap 5 mmol/L; Blood Urea Nitrogen 13 mg/dL (7-17); Calcium 8.9 mg/dL (8.4-10.2); Carbon Dioxide 26 mmol/L (22-30); Chloride 108 mmol/L (98-107); Glucose 87 mg/dL (74-99); Lipase 364 U/L (23-300); Non-African American GFR(CKD) >90 (>60 ml/min/1.73 sqM); Potassium 4.1 mmol/L (3.5-5.1); Sodium 139 mmol/L (137-145); Total Bilirubin 0.4 mg/dL (0.2-1.3); Total Protein 6.4 g/dL (6.3-8.2)
--- NOTE | 2024-05-05 13:41 | US ---
EXAMINATION TYPE: US gallbladder DATE OF EXAM: 05/05/2024 COMPARISON: CLINICAL INDICATION: Female, 29 years old with history of RUQ pain x 3 weeks with nausea TECHNIQUE: Grayscale and color Doppler imaging of the right upper quadrant was performed. FINDINGS: EXAM MEASUREMENTS: Liver Length: 17.9 cm Gallbladder Wall: 0.1 cm CBD: 0.3 cm Right Kidney: 10.3 x 4.7 x 4.6 cm SOCCER PLAYER NOTES: Pancreas: wnl Liver: wnl Gallbladder: Debris seen with change in patient position Evidence for sonographic Sinclair's sign: ? Yes CBD: wnl Right Kidney: wnl IMPRESSION: Biliary debris with positive sonographic Sinclair sign per guard driver, correlate for acute cholecystit is. [facility], , 05/05/2024 1:39 PM
[2024-05-05 15:06] VITALS: BP 108/61; PULSE 65; RESP 18; TEMP 97.9
== END 2024-05-05 15:23 | disposition home or self-care (01) ==
LOC: EC 11:33
CPT/HCPCS: 36415; 76705; 80053; 81003; 81025; 82150; 83605; 83690; 85025; 96361; 96374; 96375; 99284

== ENCOUNTER 2024-05-13 20:06 | Observation (INO) | payer OTHER ==
--- NOTE | 2024-05-13 20:34 | ED ---
Abdominal Pain HPI - General Chief Complaint: Abdominal Pain Stated Complaint: abd pain Time Seen by Provider: 05/13/24 20:32 Source: patient, RN notes reviewed Mode of arrival: ambulatory - History of Present Illness Initial Comments: 29-year-old female presenting to the ER with a chief complaint of abdominal pain. Patient states she was seen here 1 week ago for similar complaint. Patient states when seen here prior she was diagnosed with gallstones and biliary colic. She states she has been waiting to follow-up with a general surgeon but has not received any phone calls. States for the past 24 hours she has been having an increase in right upper quadrant abdominal pain with radiation to her back. Patient reports nausea and denies vomiting. She has been taking prescribed [place] 10, Tylenol without relief of pain. She has been taking Zofran with improvement in nausea. Denies any fevers, chest pain, shortness of breath, dizziness, lightheadedness, headache, cough, congestion, urinary complaints, constipation/diarrhea or peripheral edema. - Related Data Home Medications Medication Instructions Recorded Confirmed Vit No.180/Iron/Folic 1 each PO DAILY 10/29/21 03/22/23 [ Plus Tablet] Previous Rx's Medication Instructions Recorded Ibuprofen [Motrin] 600 mg PO Q6H #40 tab 03/24/23 oxyCODONE HCL [OxyIR] 5 mg PO Q4HR PRN #18 tab 03/24/23 Ketorolac [Toradol] 10 mg PO Q6HR PRN #15 tab 05/05/24 Metoclopramide [Reglan] 10 mg PO Q6H PRN #20 tab 05/05/24 Ondansetron Odt [Zofran Odt] 4 mg PO Q8HR PRN #20 tab 05/05/24 HYDROcodone/APAP 7.5-325MG [[place] 1 tab PO Q6HR PRN 3 Days #12 tab 05/06/24 7.5-325] Allergies Allergy/AdvReac Type Severity Reaction Status Date / Time No Known Allergies Allergy Verified 05/13/24 20:16 Review of Systems ROS Statement: Those systems with pertinent positive or pertinent negative responses have been documented in the HPI. ROS Other: All systems not noted in ROS Statement are negative. Past Medical History Past Medical History: GERD/Reflux Additional Past Medical History / Comment(s): Mild gestational thrombocytopenia, History of Any Multi-Drug Resistant Organisms: None Reported Past Surgical History: Section, Tubal Ligation Additional Past Surgical History / Comment(s): C-SEC Past Anesthesia/Blood Transfusion Reactions: No Reported Reaction Additional Past Anesthesia/Blood Transfusion Reaction / Comment(s): NO GENERAL ANESTH BEFORE Past Psychological History: Anxiety, Depression Smoking Status: Former smoker, Vaper Past Alcohol Use History: None Reported Past Drug Use History: None Reported - Past Family History Mother Family Medical History: No Reported History General Exam General appearance: alert, in no apparent distress Respiratory exam: Present: normal lung sounds bilaterally. Absent: respiratory distress, wheezes, rales, rhonchi, stridor Cardiovascular Exam: Present: regular rate, normal rhythm, normal heart sounds. Absent: systolic murmur, diastolic murmur, rubs, gallop, clicks GI/Abdominal exam: Present: soft, tenderness (RUQ), normal bowel sounds Neurological exam: Present: alert, oriented X3, CN II-XII intact Skin exam: Present: warm, dry, intact, normal color. Absent: rash Course Vital Signs 05/13/24 05/13/24 20:13 21:55 Temperature 98.5 F Pulse Rate 105 H 82 Respiratory 18 16 Rate Blood Pressure 141/85 O2 Sat by Pulse 99 98 Oximetry - Reevaluation(s) Reevaluation #1: 05/13/24 22:49 Case discussed with . He advised on CT abdomen pelvis to rule out complicating factors and/or obstruction. He is agreeable for admission to treat acute cholecystitis. Medical Decision Making - Medical Decision Making Was pt. sent in by a medical professional or institution (, PA, CRIME SCENE EXAMINER, urgent ca re, hospital, or half-way...) When possible be specific @ -No Did you speak to anyone other than the patient for history (EMS, parent, family, police, friend...)? What history was obtained from this source @ -No Did you review nursing and triage notes (agree or disagree)? Why? @ -I reviewed and agree with nursing and triage notes Were old charts reviewed (outside hosp., previous admission, EMS record, old EKG, old radiological studies, urgent care reports/EKG's, half-way records)? Report findings @ -Yes, I reviewed ER visit from 05-05-2024. Patient seen for small complaint. Gallbladder ultrasound at that time showed acute cholecystitis. Common bile duct 0.3. Brendon studies unremarkable. Differential Diagnosis (chest pain, altered mental status, abdominal pain women, abdominal pain men, vaginal bleeding, weakness, fever, dyspnea, syncope, headache, dizziness, GI bleed, back pain, seizure, CVA, palpatations, mental health, musculoskeletal)? @ -Differential Abdominal Pain Women:Appendicitis, Cholecystitis, diverticulosis, ischemic bowel, pancreatitis, hepatitis, UTI, gastroenteritis, AAA, incarcerated hernia, bowel obstruction, constipation, inflammatory bowel, hepatitis, peptic ulcer disease, splenic infarction, perforated viscus, vulvitis, ovarian torsion, PID, kidney stone, placenta abruption, this is not meant to be an all-inclusive list EKG interpreted by me (3pts min.). @ -None done X-rays interpreted by me (1pt min.). @ -None done CT interpreted by me (1pt min.). @ -CT abdomen pelvis performed slight edema involving the proximal duodenum could represent duodenitis. Normal appendix. No bowel perforation or abscess. Unremarkable gallbladder. U/S interpreted by me (1pt. min.). @ -None done What testing was considered but not performed or refused? (CT, X-rays, U/S, labs)? Why? @ -None What meds were considered but not given or refused? Why? @ -None Did you discuss the management of the patient with other professionals (professionals i.e. , PA, CRIME SCENE EXAMINER, lab, RT, psych nurse, psych social worker, ornamental bronze worker, teacher, multisensor intelligence officer, clinical case manager)? Give summary @ -Yes, case discussed with on-call general surgeon, Dr. Warner. He advised on CT abdomen pelvis and admission for treatment of acute cholecystitis. Was smoking cessation discussed for >3mins.? @ -No Was critical care preformed (if so, how long)? @ -No Were there social determinants of health that impacted care today? How? (Homelessness, low income, unemployed, alcoholism, drug addiction, transportation, low edu. Level, literacy, decrease access to med. care, longterm, rehab)? @ -No Was there de-escalation of care discussed even if they declined (Discuss DNR or withdrawal of care, Hospice)? DNR status @ -No What co-morbidities impacted this encounter? (DM, HTN, Smoking, COPD, CAD, Cancer, CVA, ARF, Chemo, Hep., AIDS, mental health diagnosis, sleep apnea, morbid obesity)? @ -None Was patient admitted / discharged? Hospital course, mention meds given and route, prescriptions, significant lab abnormalities, going to OR and other pertinent info. @ -Admitted. 29-year-old female presented to ER with a chief complaint of abdominal pain. Patient seen here on 05-05-2024 for similar complaint. Ultrasound at that time showing acute cholecystitis, bile duct 0.3 mm. History and physical exam completed. Vitals within normal limits. Patient in no signs of acute distress. Exam remarkable for tenderness to the right upper quadrant with normal bowel sounds. No rebound or guarding. Laboratory studies will be repeated. Laboratory studies showing a mircocytichypochromic anemia hemoglobin 10.2 which appears to be chronic in nature. CMP unimpressive. Total bilirubin 0.2, AST 20, ALT 16, alk phos 95. Urinalysis contaminated with 54 epithelial cells. Urine hCG negative. Symptomatic treatment in the ER. Case was discussed with on-call general surgeon, Dr. Warner. He advised on CT abdomen pelvis to rule out other complicating factors of acute cholecystitis. He also advised on admission for further treatment of acute cholecystitis. Patient is agreeable for admission. Patient started on IV Zosyn. Case discussed with ED attending, Dr. Astorga. Undiagnosed new problem with uncertain prognosis? @ -No Drug Therapy requiring intensive monitoring for toxicity (Heparin, Nitro, Insulin, Cardizem)? @ -No Were any procedures done? @ -No Diagnosis/symptom? @ -Acute cholecystitis Acute, or Chronic, or Acute on Chronic? @ -Acute Uncomplicated (without systemic symptoms) or Complicated (systemic symptoms)? @ -Complicated Side effects of treatment? @ -No Exacerbation, Progression, or Severe Exacerbation? @ -No Poses a threat to life or bodily function? How? (Chest pain, USA, MS, pneumonia, PE, COPD, DKA, ARF, appy, cholecystitis, CVA, Diverticulitis, Homicidal, Suicidal, threat to staff... and all critical care pts) @ -Yes, cholecystitis can lead to choledocholithiasis/cholangitis which can lead to sepsis and an endorgan dysfunction. - Lab Data Result diagrams: 05/13/24 20:53 05/13/24 20:53 Lab Results 05/13/24 05/13/24 05/13/24 Range/Units 20:53 20:53 20:53 WBC 5.9 (3.8-10.6) k/uL RBC 4.32 (3.80-5.40) m/uL Hgb 10.2 L (11.4-16.0) gm/dL Hct 33.0 L (34.0-46.0) % MCV 76.4 L (80.0-100.0) fL MCH 23.6 L (25.0-35.0) pg MCHC 30.9 L (31.0-37.0) g/dL RDW 16.2 H (11.5-15.5) % Plt Count 170 (150-450) k/uL MPV 6.9 Neutrophils % 71 % Lymphocytes % 19 % Monocytes % 5 % Eosinophils % 3 % Basophils % 0 % Neutrophils # 4.2 (1.3-7.7) k/uL Lymphocytes # 1.1 (1.0-4.8) k/uL Monocytes # 0.3 (0-1.0) k/uL Eosinophils # 0.2 (0-0.7) k/uL Basophils # 0.0 (0-0.2) k/uL Hypochromasia Marked Anisocytosis Slight Microcytosis Slight Sodium 138 (137-145) mmol/L Potassium 3.6 (3.5-5.1) mmol/L Chloride 110 H (98-107) mmol/L Carbon Dioxide 24 (22-30) mmol/L Anion Gap 4 mmol/L BUN 9 (7-17) mg/dL Creatinine 0.80 (0.52-1.04) mg/dL Est GFR (CKD-EPI)AfAm >90 (>60 ml/min/1.73 sqM) Est GFR (CKD-EPI)NonAf >90 (>60 ml/min/1.73 sqM) Glucose 95 (74-99) mg/dL Plasma Lactic Acid Kyrie 1.0 (0.7-2.0) mmol/L Calcium 8.7 (8.4-10.2) mg/dL Total Bilirubin 0.2 (0.2-1.3) mg/dL AST 20 (14-36) U/L ALT 16 (4-34) U/L Alkaline Phosphatase 95 (38-126) U/L Total Protein 6.0 L (6.3-8.2) g/dL Albumin 3.9 (3.5-5.0) g/dL Amylase 41 (30-110) U/L Lipase 73 (23-300) U/L Urine Color Urine Appearance (Clear) Urine pH (5.0-8.0) Ur Specific Tok (1.001-1.035) Urine Protein (Negative) Urine Glucose (UA) (Negative) Urine Ketones (Negative) Urine Blood (Negative) Urine Nitrite (Negative) Urine Bilirubin (Negative) Urine Urobilinogen (<2.0) mg/dL Ur Leukocyte Esterase (Negative) Urine RBC (0-5) /hpf Urine WBC (0-5) /hpf Ur Squamous Epith Cells (0-4) /hpf Urine Bacteria (None) /hpf Urine Mucus (None) /hpf Urine HCG, Qual (Not Detectd) 05/13/24 05/13/24 Range/Units 20:56 20:56 WBC (3.8-10.6) k/uL RBC (3.80-5.40) m/uL Hgb (11.4-16.0) gm/dL Hct (34.0-46.0) % MCV (80.0-100.0) fL MCH (25.0-35.0) pg MCHC (31.0-37.0) g/dL RDW (11.5-15.5) % Plt Count (150-450) k/uL MPV Neutrophils % % Lymphocytes % % Monocytes % % Eosinophils % % Basophils % % Neutrophils # (1.3-7.7) k/uL Lymphocytes # (1.0-4.8) k/uL Monocytes # (0-1.0) k/uL Eosinophils # (0-0.7) k/uL Basophils # (0-0.2) k/uL Hypochromasia Anisocytosis Microcytosis Sodium (137-145) mmol/L Potassium (3.5-5.1) mmol/L Chloride (98-107) mmol/L Carbon Dioxide (22-30) mmol/L Anion Gap mmol/L BUN (7-17) mg/dL Creatinine (0.52-1.04) mg/dL Est GFR (CKD-EPI)AfAm (>60 ml/min/1.73 sqM) Est GFR (CKD-EPI)NonAf (>60 ml/min/1.73 sqM) Glucose (74-99) mg/dL Plasma Lactic Acid Kyrie (0.7-2.0) mmol/L Calcium (8.4-10.2) mg/dL Total Bilirubin (0.2-1.3) mg/dL AST (14-36) U/L ALT (4-34) U/L Alkaline Phosphatase (38-126) U/L Total Protein (6.3-8.2) g/dL Albumin (3.5-5.0) g/dL Amylase (30-110) U/L Lipase (23-300) U/L Urine Color Yellow Urine Appearance Cloudy H (Clear) Urine pH 6.0 (5.0-8.0) Ur Specific Tok 1.023 (1.001-1.035) Urine Protein Trace H (Negative) Urine Glucose (UA) Negative (Negative) Urine Ketones Negative (Negative) Urine Blood Negative (Negative) Urine Nitrite Negative (Negative) Urine Bilirubin Negative (Negative) Urine Urobilinogen 2.0 (<2.0) mg/dL Ur Leukocyte Esterase Moderate H (Negative) Urine RBC 2 (0-5) /hpf Urine WBC 8 H (0-5) /hpf Ur Squamous Epith Cells 54 H (0-4) /hpf Urine Bacteria Occasional H (None) /hpf Urine Mucus Few H (None) /hpf Urine HCG, Qual Not Detected (Not Detectd) - Radiology Data Radiology results: report reviewed, image reviewed Disposition Clinical Impression: Acute cholecystitis Disposition: ADMITTED IP TO THIS [facility] Condition: Stable Referrals: Cortez Diaz MD [Primary Care Provider] - 1-2 days Time of Disposition: 01:11
[2024-05-13] MEDS: ONDANSETRON 4 MG/2 ML VIAL IVP STA (20:57)
[2024-05-13] MEDS: SODIUM CHLORIDE 0.9% 1,000 ML IV STA ×2 (20:57→23:50)
[2024-05-13] MEDS: KETOROLAC 15 MG/ML 1 ML VIAL IVP STA (20:57)
[2024-05-13 21:06] LABS: Anisocytosis Slight; Basophils % (A) 0 %; Eosinophils # (A) 0.2 k/uL (0-0.7); Eosinophils % (A) 3 %; HGB 10.2 gm/dL (11.4-16.0); Hypochromasia Marked; Lymphocytes # (A) 1.1 k/uL (1.0-4.8); Lymphocytes % (A) 19 %; MCH 23.6 pg (25.0-35.0); MCHC 30.9 g/dL (31.0-37.0); MCV 76.4 fL (80.0-100.0); Mean Platelet Volume 6.9; Microcytosis Slight; Monocytes # (A) 0.3 k/uL (0-1.0); Monocytes % (A) 5 %; Neutrophils # (A) 4.2 k/uL (1.3-7.7); Neutrophils % (A) 71 %; Platelet Count 170 k/uL (150-450); RBC 4.32 m/uL (3.80-5.40); RDW 16.2 % (11.5-15.5); WBC 5.9 k/uL (3.8-10.6)
[2024-05-13 21:18] LABS: ALT 16 U/L (4-34); AST 20 U/L (14-36); African American GFR (CKD) >90 (>60 ml/min/1.73 sqM); Albumin 3.9 g/dL (3.5-5.0); Alkaline Phosphatase 95 U/L (38-126); Amylase 41 U/L (30-110); Anion Gap 4 mmol/L; Blood Urea Nitrogen 9 mg/dL (7-17); Calcium 8.7 mg/dL (8.4-10.2); Carbon Dioxide 24 mmol/L (22-30); Chloride 110 mmol/L (98-107); Glucose 95 mg/dL (74-99); Lipase 73 U/L (23-300); Non-African American GFR(CKD) >90 (>60 ml/min/1.73 sqM); Potassium 3.6 mmol/L (3.5-5.1); Sodium 138 mmol/L (137-145); Total Bilirubin 0.2 mg/dL (0.2-1.3)
[2024-05-13 21:43] LABS: Appearance,Urine Cloudy (Clear); Bacteria,Urine Occasional /hpf; Bilirubin,Urine Negative (Negative); Blood,Urine Negative (Negative); Color,Urine Yellow; Glucose,Urine (UA) Negative (Negative); Ketones,Urine Negative (Negative); Leukocyte Esterase,Urine Moderate (Negative); Mucus,Urine Few /hpf; Nitrite,Urine Negative (Negative); Protein,Urine Trace (Negative); RBC,Urine 2 /hpf (0-5); Specific Gravity,Urine 1.023 (1.001-1.035); Squamous Epithelial Cell,Urine 54 /hpf (0-4); WBC,Urine 8 /hpf (0-5)
[2024-05-13] MEDS: MORPHINE SULFATE 4 MG/ML SYRINGE IVP STA (21:54)
[2024-05-13] MEDS: HYDROmorphone 1 MG/ML 1 ML SYRINGE IVP STA (23:50)
[2024-05-13] MEDS: METOCLOPRAMIDE 5 MG/ML 2 ML VIAL IVP STA (23:51)
--- NOTE | 2024-05-14 01:02 | CT ---
EXAM: CT Abdomen and Pelvis With Intravenous Contrast CLINICAL HISTORY: CT Reason: RUQ abd pain TECHNIQUE: Axial computed tomography images of the abdomen and pelvis with intravenous contrast. CTDI is the 6-year-old by legal is a little 38.3 mGy and DLP is 1913.9 mGy-cm. This CT exam was performed using one or more of the following dose reduction techniques: automated exposure control, adjustment of the mA and/or kV according to patient size, and/or use of iterative reconstruction technique. COMPARISON: Ultrasound from December 03, 2020 FINDINGS: Lung bases: Unremarkable. No mass. No consolidation. ABDOMEN: Liver: The liver is enlarged measuring 21 cm craniocaudad. No focal liver lesion is seen. Gallbladder and bile ducts: Unremarkable. No calcified stones. No ductal dilation. Pancreas: Unremarkable. No mass. No ductal dilation. Spleen: Unremarkable. No splenomegaly. Adrenals: Unremarkable. No mass. Kidneys and ureters: Delayed images show normal renal contrast excretion bilaterally. No hydronephrosis. Stomach and bowel: See below. PELVIS: Appendix: The appendix is normal. Bowel loops are nondilated. No acute inflammatory changes are seen involving the bowel. Bladder: Unremarkable. No mass. Reproductive: Unremarkable as visualized. ABDOMEN and PELVIS: Intraperitoneal space: Unremarkable. No free air. No significant fluid collection. Bones/joints: No acute fracture. No dislocation. Soft tissues: Possible slight edema involving the proximal duodenum could represent duodenitis. No signs of bowel perforation or abscess. There is a fat-containing umbilical hernia measuring 2 cm without signs of acute inflammation. Vasculature: Unremarkable. No abdominal aortic aneurysm. Lymph nodes: Unremarkable. No enlarged lymph nodes. IMPRESSION: 1. Possible slight edema involving the proximal duodenum could represent duodenitis. No signs of bowel perforation or abscess. 2. The appendix is normal. Bowel loops are nondilated. No acute inflammatory changes are seen involving the bowel. 3. Unremarkable appearance of the gallbladder.
[2024-05-14] MEDS ORDERED: KETOROLAC 15 MG/ML 1 ML VIAL IVP PRN (01:10)
[2024-05-14] MEDS ORDERED: NALOXONE 0.4 MG/ML 1 ML VIAL IV PRN (01:10)
[2024-05-14] MEDS: PIPERACILLIN-TAZOBACTAM 3.375 GM in SODIUM CHLORIDE 0.9% 100 ML IVPB SCH ×2 (02:32→20:59)
[2024-05-14] MEDS: HYDROmorphone 1 MG/ML 1 ML SYRINGE IVP PRN (02:45)
[2024-05-14] MEDS: ONDANSETRON 4 MG/2 ML VIAL IVP PRN (08:17)
[2024-05-14] MEDS ORDERED: ONDANSETRON ODT 4 MG TAB PO PRN (09:56)
--- NOTE | 2024-05-14 12:35 | US ---
EXAMINATION TYPE: US gallbladder DATE OF EXAM: 05/14/2024 COMPARISON: NONE CLINICAL INDICATION: Female, 29 years old with history of cholecystitis; pain gallbladder. TECHNIQUE: Grayscale and color Doppler imaging of the right upper quadrant was performed. FINDINGS: EXAM MEASUREMENTS: Liver Length: 17.3 cm Gallbladder Wall: .2 cm CBD: .4 cm Right Kidney: 9.4 x 3.2 x 4.6 cm DIRECTOR EMPLOYEE COMMUNICATIONS NOTES: Pancreas: Tail obscured by overlying bowel gas Liver: Increased attenuation Gallbladder: No stones seen Evidence for sonographic Sinclair's sign: No CBD: wnl Right Kidney: No hydronephrosis or masses seen IMPRESSION: [facility] Efrain Marino, Workstation: [facility], 05/14/2024 12:32 PM
--- NOTE | 2024-05-14 13:11 | P.GSHP ---
History of Present Illness H&P Date: 05/14/24 29-year-old female presenting to the [facility] ER with a chief complaint of abdominal pain. Patient states she was seen here 1 week ago for similar complaint. Patient states when seen here prior she was diagnosed with gallstones and biliary colic. She states she has been waiting to follow-up with a general surgeon but has not received any phone calls. States for the past 24 hours she has been having an increase in right upper quadrant abdominal pain with radiation to her back. Patient reports nausea and denies vomiting. Denies any fevers, chest pain, shortness of breath, dizziness, lightheadedness, headache, cough, congestion, urinary complaints, constipation/diarrhea or peripheral edema. She had a CT-AP which showed some duodenitis and inflammation around first portion of duodenum. Review of Systems ROS Statement: Those systems with pertinent positive or pertinent negative responses have been documented in the HPI. ROS Other: All systems not noted in ROS Statement are negative. Past Medical History Past Medical History: GERD/Reflux Additional Past Medical History / Comment(s): Mild gestational thrombocytopenia, History of Any Multi-Drug Resistant Organisms: None Reported Past Surgical History: Section, Tubal Ligation Additional Past Surgical History / Comment(s): C-SEC Past Anesthesia/Blood Transfusion Reactions: No Reported Reaction Additional Past Anesthesia/Blood Transfusion Reaction / Comment(s): NO GENERAL ANESTH BEFORE Past Psychological History: Anxiety, Depression Smoking Status: Former smoker, Vaper Past Alcohol Use History: None Reported Past Drug Use History: None Reported - Past Family History Mother Family Medical History: No Reported History General Exam General appearance: alert, in no apparent distress Respiratory exam: Present: normal lung sounds bilaterally. Absent: respiratory distress, wheezes, rales, rhonchi, stridor Cardiovascular Exam: Present: regular rate, normal rhythm, normal heart sounds. Absent: systolic murmur, diastolic murmur, rubs, gallop, clicks GI/Abdominal exam: Present: soft, tenderness (RUQ), normal bowel sounds Neurological exam: Present: alert, oriented X3, CN II-XII intact Skin exam: Present: warm, dry, intact, normal color. Absent: rash 29 year old female with Epigastric/RUQ pain. CT-AP shows inflammation around first portion of duodenum -CLD, NPO/midnight -Scheduled for EGD tomorrow -RUQ US pending -Nausea and Pain Control -Further recs pending [facility] Jaron Warner [facility] [phone] Past Medical History Past Medical History: GERD/Reflux Additional Past Medical History / Comment(s): Mild gestational thrombocytopenia, History of Any Multi-Drug Resistant Organisms: None Reported Past Surgical History: Section, Tubal Ligation Additional Past Surgical History / Comment(s): C-SEC Past Anesthesia/Blood Transfusion Reactions: No Reported Reaction Additional Past Anesthesia/Blood Transfusion Reaction / Comment(s): NO GENERAL ANESTH BEFORE Past Psychological History: Anxiety, Depression Additional Psychological History / Comment(s): UNDER CONTROL AT THIS TIME Smoking Status: Former smoker, Vaper Past Alcohol Use History: None Reported Additional Past Alcohol Use History / Comment(s): SMOKES 4 CIGARETTES/DAY., STARTED SMOKING AGE 17-QUIT SMOKING AT BEGINNING OF IN DECEMBER 2020 Past Drug Use History: None Reported - Past Family History Mother Family Medical History: No Reported History Medications and Allergies Home Medications Medication Instructions Recorded Confirmed Type Metoclopramide [Reglan] 10 mg PO Q6H PRN #20 tab 05/05/24 05/14/24 Rx Ondansetron Odt [Zofran Odt] 4 mg PO Q8HR PRN #20 tab 05/05/24 05/14/24 Rx Cephalexin [Keflex] 500 mg PO QID 05/14/24 05/14/24 History Escitalopram [Lexapro] 20 mg PO HS 05/14/24 05/14/24 History HYDROcodone/APAP 10-325MG [[place] 1 tab PO Q6HR PRN 05/14/24 05/14/24 History 10-325] Ibuprofen [Motrin] 800 mg PO TID PRN 05/14/24 05/14/24 History buPROPion XL [Wellbutrin XL] 150 mg PO HS 05/14/24 05/14/24 History methocarbamoL [Robaxin-750] 750 mg PO BID PRN 05/14/24 05/14/24 History Allergies Allergy/AdvReac Type Severity Reaction Status Date / Time No Known Allergies Allergy Verified 05/14/24 10:04 Surgical - Exam Vital Signs Temp Pulse Resp Pulse Ox 98.5 F 105 H 18 99 05/13/24 20:13 05/13/24 20:13 05/13/24 20:13 05/13/24 20:13 Results - Labs 05/13/24 20:53 05/13/24 20:53 Abnormal Lab Results - Last 24 Hours (Table) 05/13/24 05/13/24 05/13/24 Range/Units 20:53 20:53 20:56 Hgb 10.2 L (11.4-16.0) gm/dL Hct 33.0 L (34.0-46.0) % MCV 76.4 L (80.0-100.0) fL MCH 23.6 L (25.0-35.0) pg MCHC 30.9 L (31.0-37.0) g/dL RDW 16.2 H (11.5-15.5) % Chloride 110 H (98-107) mmol/L Total Protein 6.0 L (6.3-8.2) g/dL Urine Appearance Cloudy H (Clear) Urine Protein Trace H (Negative) Ur Leukocyte Esterase Moderate H (Negative) Urine WBC 8 H (0-5) /hpf Ur Squamous Epith Cells 54 H (0-4) /hpf Urine Bacteria Occasional H (None) /hpf Urine Mucus Few H (None) /hpf Diabetes panel 05/13/24 Range/Units 20:53 Sodium 138 (137-145) mmol/L Potassium 3.6 (3.5-5.1) mmol/L Chloride 110 H (98-107) mmol/L Carbon Dioxide 24 (22-30) mmol/L BUN 9 (7-17) mg/dL Creatinine 0.80 (0.52-1.04) mg/dL Glucose 95 (74-99) mg/dL Calcium 8.7 (8.4-10.2) mg/dL AST 20 (14-36) U/L ALT 16 (4-34) U/L Alkaline Phosphatase 95 (38-126) U/L Total Protein 6.0 L (6.3-8.2) g/dL Albumin 3.9 (3.5-5.0) g/dL Calcium panel 05/13/24 Range/Units 20:53 Calcium 8.7 (8.4-10.2) mg/dL Albumin 3.9 (3.5-5.0) g/dL Pituitary panel 05/13/24 Range/Units 20:53 Sodium 138 (137-145) mmol/L Potassium 3.6 (3.5-5.1) mmol/L Chloride 110 H (98-107) mmol/L Carbon Dioxide 24 (22-30) mmol/L BUN 9 (7-17) mg/dL Creatinine 0.80 (0.52-1.04) mg/dL Glucose 95 (74-99) mg/dL Calcium 8.7 (8.4-10.2) mg/dL Adrenal panel 05/13/24 Range/Units 20:53 Sodium 138 (137-145) mmol/L Potassium 3.6 (3.5-5.1) mmol/L Chloride 110 H (98-107) mmol/L Carbon Dioxide 24 (22-30) mmol/L BUN 9 (7-17) mg/dL Creatinine 0.80 (0.52-1.04) mg/dL Glucose 95 (74-99) mg/dL Calcium 8.7 (8.4-10.2) mg/dL Total Bilirubin 0.2 (0.2-1.3) mg/dL AST 20 (14-36) U/L ALT 16 (4-34) U/L Alkaline Phosphatase 95 (38-126) U/L Total Protein 6.0 L (6.3-8.2) g/dL Albumin 3.9 (3.5-5.0) g/dL
--- NOTE | 2024-05-14 21:29 | HP ---
HISTORY AND PHYSICAL CHIEF COMPLAINT: Abdominal pain. HISTORY OF PRESENT ILLNESS: This is first known admission for this 29-year-old female. She presented to the emergency room with upper abdominal pain and was found to have an acute cholecystitis. REVIEW OF SYSTEMS: She denies fever, chills, vomiting, jaundice, etc. Past medical history, family history, personal and social histories are all otherwise unremarkable and noncontributory. PHYSICAL EXAMINATION: VITAL SIGNS: Normal. HEAD, EARS, EYES, NOSE, MOUTH, AND THROAT: Normal. CHEST: Clear. CARDIAC: Normal. ABDOMEN: Slightly protuberant. She is tender over the upper abdomen. IMPRESSION: Acute cholecystitis. PLAN: 1. Bedrest. 2. IV fluids. 3. Surgical management when she is stabilized. MMNAREN / MIREYAN: [id number] /
[2024-05-15 00:50] VITALS: TEMP 98.4
[2024-05-15] MEDS: PANTOPRAZOLE 40 MG/10 ML VIAL IVP SCH (08:10)
[2024-05-15 08:42] LABS: Basophils # (A) 0.03 X 10*3/uL (0.00-0.10); Basophils % (A) 0.6 %; Eosinophils # (A) 0.11 X 10*3/uL (0.04-0.35); Eosinophils % (A) 2.1 %; HCT 31.5 % (37.2-46.3); HGB 9.1 g/dL (12.0-15.0); MCH 22.5 pg (27.0-32.0); MCHC 28.9 g/dL (32.0-37.0); MCV 77.8 FL (80.0-97.0); Mean Platelet Volume 10.8 FL (9.5-12.2); Monocytes # (A) 0.46 X 10*3/uL (0.20-1.00); Monocytes % (A) 8.8 %; NRBC Per 100 WBC 0 X 10*3/uL (0.00-0.01); Neutrophils # (A) 3.52 X 10*3/uL (1.80-7.70); Neutrophils % (A) 66.9 %; Platelet Count 169 X 10*3/uL (140-440); RBC 4.05 X 10*6/uL (4.10-5.20); RDW 16.8 % (11.5-14.5); WBC 5.25 X 10*3/uL (4.50-10.00)
[2024-05-15 08:50] LABS: ALT 13 U/L (8-44); AST 15 U/L (13-35); Albumin 3.5 g/dL (3.8-4.9); Albumin/Globulin Ratio 2.19 Ratio (1.60-3.17); Alkaline Phosphatase 93 U/L (41-126); Bilirubin, Conjugated <0.20 mg/dL (0.20-0.40); Bilirubin,Unconjugated >0.20 mg/dL (0.20-1.00); Blood Urea Nitrogen 7.8 mg/dL (9.0-27.0); Calcium 8.3 mg/dL (8.7-10.3); Carbon Dioxide 23.9 mmol/L (21.6-31.8); Chloride 107 mmol/L (96-109); Globulin 1.6 g/dL (1.6-3.3); Glucose 96 mg/dL (70-110); Sodium 139 mmol/L (135-145); Total Bilirubin 0.4 mg/dL (0.3-1.2); Total Protein 5.1 g/dL (6.2-8.2)
[2024-05-15] MEDS ORDERED: LIDOCAINE 2% (PF) 20 MG/ML 5 ML VIAL ONE (12:37)
[2024-05-15] MEDS ORDERED: PROPOFOL 10 MG/ML 20 ML VIAL IV ONE (12:37)
[2024-05-15] MEDS ORDERED: fentaNYL (PF) 50 MCG/ML 2 ML AMP ONE (12:37)
[2024-05-15] MEDS: IV FLUID CONTINUATION 1,000 ML IV ONE (12:56)
[2024-05-15 14:46] VITALS: RESP 16
[2024-05-15 16:17] VITALS: BP 105/76; PULSE 79
--- NOTE | 2024-05-15 16:19 | P.DS ---
Providers Date of admission: 05/14/24 01:10 Attending physician: Jaron Warner DO Consults: 05/14/24 13:06 Consult Physician Routine Consulting Provider: Cortez Diaz Reason/Comments: Medical Management Do you want consulting provider notified?: Yes Primary care physician: Cortez Diaz [facility] Course: 29-year-old female presented with complaint of abdominal pain. On workup, patient is found to have inflammatory changes around duodenum. No gallbladder acuity noted on current imaging. Patient did have upper endoscopy performed with finding of significant gastritis and duodenitis and hiatal hernia. Patient was started on PPI and Carafate with surgical stability for discharge. Procedures: Upper endoscopy Patient Condition at Discharge: Stable Plan - Discharge Summary Discharge Rx Participant: Yes New Discharge Prescriptions: New Sucralfate [Carafate] 1 gm PO ACHS 42 Days #168 tablet Pantoprazole Sodium [Protonix] 40 mg PO BID 42 Days #84 tab Continue Metoclopramide [Reglan] 10 mg PO Q6H PRN #20 tab PRN Reason: Nausea And Vomiting Escitalopram [Lexapro] 20 mg PO HS buPROPion XL [Wellbutrin XL] 150 mg PO HS HYDROcodone/APAP 10-325MG [[place] 10-325] 1 tab PO Q6HR PRN PRN Reason: Pain Cephalexin [Keflex] 500 mg PO QID Ondansetron Odt [Zofran ODT] 4 mg PO Q8HR PRN #20 tab PRN Reason: Nausea And Vomiting methocarbamoL [Robaxin-750] 750 mg PO BID PRN PRN Reason: Muscle Spasm Discontinued Ibuprofen [Motrin] 800 mg PO TID PRN PRN Reason: Pain Discharge Medication List Metoclopramide [Reglan] 10 mg PO Q6H PRN #20 tab 05/05/24 [Rx] Ondansetron Odt [Zofran ODT] 4 mg PO Q8HR PRN #20 tab 05/05/24 [Rx] Cephalexin [Keflex] 500 mg PO QID 05/14/24 [History] Escitalopram [Lexapro] 20 mg PO HS 05/14/24 [History] HYDROcodone/APAP 10-325MG [[place] 10-325] 1 tab PO Q6HR PRN 05/14/24 [History] buPROPion XL [Wellbutrin XL] 150 mg PO HS 05/14/24 [History] methocarbamoL [Robaxin-750] 750 mg PO BID PRN 05/14/24 [History] Pantoprazole Sodium [Protonix] 40 mg PO BID 42 Days #84 tab 05/15/24 [Rx] Sucralfate [Carafate] 1 gm PO ACHS 42 Days #168 tablet 05/15/24 [Rx] Follow up Appointment(s)/Referral(s): Cortez Diaz MD [Primary Care Provider] - 1-2 days Franklin Lemus DO [Doctor of Osteopathic Medicine] - 3 Weeks Activity/Diet/Wound Care/Special Instructions: Avoid NSAIDS such as Motrin Discharge Disposition: HOME SELF-CARE
--- NOTE | 2024-05-15 16:21 | P.PCN ---
Date of Procedure: 05/15/24 Preoperative Diagnosis: Duodenitis Postoperative Diagnosis: Gastritis Duodenitis Hiatal Hernia Procedure(s) Performed: EGD with biopsy Anesthesia: VERENICE Surgeon: Franklin Lemus Pathology: other (Biopsies of hiatal hernia, antrum, duodenum) Condition: stable Disposition: floor Indications for Procedure: 29-year-old female presented with abdominal pain in the epigastrium with finding of duodenitis on CT. Plan for upper endoscopy for further evaluation. Risks, benefits and alternatives provided to the patient. All questions answered. Operative Findings: Significant gastritis and duodenitis Hiatal hernia Description of Procedure: Patient was brought to the endoscopy suite and placed in left lateral decubitus position and adequate sedation was achieved using conscious sedation. A bite- block was placed and an endoscope was placed in the oropharynx and advanced under endoscopic visualization. The endoscope was advanced through the esophagus and into the stomach. Scope was then passed through the gastric antrum and in through the pylorus. The third portion of the duodenum was visualized. The endoscope was then slowly withdrawn. The first portion of the duodenum was noted to have significant inflammatory changes and possible healing ulcer. Biopsies were taken. The antrum was noted to have significant inflammatory changes and multiple biopsies were taken. The gastric body distended normally and gastric folds appeared normal and flattened with insufflation. A retroflexed view of the fundus and GE junction revealed moderate hiatal hernia. Biopsy of the hiatal hernia was taken as it did appear friable. The esophagus otherwise appeared endoscopically normal. Excess air was removed and scope was withdrawn and the procedure completed. The patient was then sent to postanesthesia care unit in stable condition.
[2024-05-15] MEDS ORDERED: SUCRALFATE 1 GM TAB PO SCH (17:30)
--- NOTE | 2024-05-16 22:20 | PN ---
PROGRESS NOTE DATE OF SERVICE: 05/15/2024 CHIEF COMPLAINT: Epigastric pain. HISTORY OF PRESENT ILLNESS: This lady is going for an upper GI endoscopy. It is the feeling of Surgery that this may not be a gallbladder disease. PHYSICAL EXAMINATION: CHEST: Clear. CARDIAC: Normal. ABDOMEN: Soft, nontender and there are no masses. IMPRESSION: Epigastric pain. PLAN: Upper GI endoscopy today. If this is negative, she will probably be discharged this afternoon. MMODL / IJN: [id number] /
== END 2024-05-15 16:38 | disposition home or self-care (01) ==
LOC: EC 20:06 → 6NMEDSUR 05-14 01:10
PROVIDERS: ADMIT Surgery; ATTEND Surgery
DX: K29.80 Duodenitis without bleeding (principal); K81.0 Acute cholecystitis; K44.9 Diaphragmatic hernia without obstruction or gangrene; K29.70 Gastritis, unspecified, without bleeding; K21.9 Gastro-esophageal reflux disease without esophagitis; F32.A Depression, unspecified; F41.9 Anxiety disorder, unspecified; Z87.891 Personal history of nicotine dependence; Z79.899 Other long term (current) drug therapy
CPT/HCPCS: 96376 ×2; 96361 ×3; 96375 ×2; 96374; 99285; 36415; 88305; 80053; 80048; 80076; 82150; 83605; 83690; 85025 ×2; 81001; 88342; 81025; 87040; 76705; 74177; 43239; G0378 ×2; J2543 ×2; J2270; J2765; J2405 ×2; J3010; J1171 ×3; J1885; J2704; Q9967; J2003; J2470